=== PATIENT | female | born 1950 | race Caucasian/White ===

== ENCOUNTER 2024-02-28 06:29 | Day surgery (SDC) | payer MEDICARE, SELFPAY ==
[2024-02-28] VITALS (9 sets, daily range): BP systolic 115–154; BP diastolic 74–90; BMI 25.7
[2024-02-28] MEDS: TYLENOL 1000 MG PO (08:22)
[2024-02-28] MEDS: NORMOSOL-R 1000 IV (08:29)
--- NOTE | 2024-02-28 08:45 | W.SUR.PREOP ---
Pre-Operative Surgical Note
-
I have examined this patient prior to the performance of the scheduled procedure.
The patient's condition is unchanged from the time of the current History and
Physical and the patient is able to undergo the scheduled procedure.
[2024-02-28] MEDS: DILAUDID 0.5 MG IV (11:22)
[2024-02-28] MEDS: DILAUDID 0.25 MG IV (11:48)
[2024-02-28] MEDS: MOTRIN 600 MG PO (12:58)
--- NOTE | 2024-02-28 13:08 | PTCARENOTE ---
Reviewed care of JOSHUA drain, given measuring cup to measure drainage and information sheet with instruction and place to document drainage. Pt told to call with any questions or concerns. Pt has had a JOSHUA drain in the past.
--- NOTE | 2024-02-28 16:39 | W.IMMPOSTOP ---
Surgical Immed Post Op Note
-
Primary Surgeon: MARISOL Hernandez MD
Assisting Surgeon:
Pre-op Diagnosis: Right knee Seroma
Post-op Diagnosis: Same
Procedure Performed: Incision and drainage of right knee, capsulectomy/debridement to fascia, complex closure
Anesthesia Type: GA
Specimen / Cultures: Tissue for culture, permanent
Estimated Blood Loss: 10cc
Complications: None
Operative Findings: Large chronic seroma cavity
--- NOTE | 2024-02-28 16:40 | OR.RPT ---
Operative Report
Operative Report
Date of surgery: 02/28/2024
Surgeon: MARISOL Hernandez MD
Preoperative diagnosis: Right recurrent seroma knee
Postoperative diagnosis: Same
Procedure:
1. Incision and drainage of right knee seroma
2. Capsulectomy and debridement of right knee to fascia, 20 x 15 cm
3. Complex closure of right knee wound 15 cm
Anesthesia: General
EBL: 10 cc
Complications: None
Specimens: Right knee capsule for permanent, tissue for culture
Indications for procedure: Patient is a 74-year-old female who underwent a right total knee arthroplasty. This was complicated by a seroma postoperatively. An attempt to manage this was performed with incision and drainage and drain placement. An
attempt at sclerosis was also performed. 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 This is large in nature without overlying skin concern. We discussed the findings at length and options and alternatives. Decision was made
to proceed with an open incision and drainage with removal of the chronic seroma capsule and debridement of all tissues. She was instructed that a drain would need to be placed and that compression and immobilization will be required in the
postoperative period. Risk the procedure were reviewed including recurrent seroma, wound healing difficulties, infection, bleeding. She understood these risk desired to proceed
Procedure in detail: Patient was identified the preoperative area and the surgical site was confirmed to be the right knee. The prior midline vertical incision was marked out for scar revision. Consents were confirmed all questions were answered.
Patient was taken back to the operative room placed upon the table. Anesthesia was induced and an LMA was placed. Patient was then prepped and draped in the usual sterile fashion. Timeout for patient safety was performed was confirmed that
preoperative antibiotics were administered and left SCD was in place. Procedure began with the excision of the prior elliptical scar revision. This was performed after the injection 1% lidocaine with epinephrine for local anesthesia. The incision
and drainage of the right knee seroma was performed and simple fluid return was noted. Debris within the seroma cavity was sent for culture. Debridement was then performed over this area with capsulectomy. There was significant undermining of the
superior inferior and bilateral skin flaps. The total area was approximately 20 x 15 cm. The capsule was removed from the underlying skin surface being sure to not damage the dermal plexus. The capsule overlying the underlying fascia was also
removed. This was sent for permanent pathology. Hemostasis was ensured and a small bore JOSHUA drain was placed and tunneled superiorly through the skin. 2-0 Prolene was used to suture this in place. A complex closure of the right knee wound was
then performed over an area of 15 cm. This was done with a series of 2-0 Vicryl sutures followed by 2-0 nylon's in a vertical mattress and running fashion. She tolerated procedure well was performed out complication all counts were correct at the
end the case. She was extubated taken the PACU for further care
== END 2024-02-28 13:07 | disposition home or self-care (01) ==
LOC: SDS 06:29
PROVIDERS: ATTENDING PHYSICIAN Surgery Plastic and Reconstructive Surgery
DX: M96.842 Postprocedural seroma of a musculoskeletal structure following a musculoskeletal system procedure (principal); Z96.651 Presence of right artificial knee joint
CPT/HCPCS: 10140; 13121; 13122 ×2; 88304; 87070; 87075; 87176; 87205; 93005

== ENCOUNTER 2024-03-21 20:56 | Inpatient (IN) | payer MEDICARE, OTHER, SELFPAY ==
[2024-03-21 17:33] VITALS: BP 146/97
--- NOTE | 2024-03-21 18:19 | ED.GENMED ---
History of Present Illness
General
Chief Complaint: Skin Problem
Time Seen by Provider: 03/21/24 17:45
History of Present Illness
History of Present Illness:
74-year-old female presents the emergency department upon referral from her plastic surgeon. She underwent a right total knee arthroplasty last year that was complicated by development of a seroma. Approximately 3 weeks ago she saw plastic surgery
and underwent operative washout however after evaluation today it was felt that the motion site was infected and she was referred to emergency department for admission and IV antibiotics and potential orthopedic evaluation. She denies fevers or
chills
Review of Systems
Review of Systems
Allergies reviewed?: Yes
All Other Systems: ROS reviewed and negative except as documented in HPI and ROS
Phy Exam
Physical Exam
Physical Exam:
GEN: Well appearing, NAD, WDWN
HEENT: Oral mucosa moist, no scleral icterus
Cardiac: Regular rate
Lung: No respiratory distress, no tachypnea
MSK: Diffuse redness swelling, midline incision with diffuse erythema, JOSHUA drain present with purulent discharge
Skin: Good color, no pallor or jaundice, no rashes
Neuro: AO x3, moves all extremities freely
Psych: Calm, cooperative
Course
Orders/Labs/Results
Orders:
Orders
03/21/24 Dinner
Regular
At Your Request: Full Participation
03/21/24 18:09
Piperacillin/Tazo 3.375 Gram [Zosyn] 3.375 gram in 50 ml IV NOW
03/21/24 19:09
CRP [C-Reactive Protein] Urgent
Complete Blood Count/With Diff Urgent
Comprehensive Metabolic Panel Urgent
Magnesium Urgent
Comment: ADD ON
03/21/24 19:17
Acetaminophen [Tylenol] 1,000 mg .ROUTE .STK-MED ONE
03/21/24 19:20
Acetaminophen [Tylenol] 1,000 mg PO NOW STA
03/21/24 19:31
Vancomycin [Vancocin] 1,500 mg 0.9% Sodium Chloride [Nss] 20 ml 0.9% Sodium Chloride 250 ml [Nss] 250 ml IV NOW
03/21/24 20:00
VANCOMYCIN Pharmacy to Dose [VANCOCIN Pharmacy to Dose] 1 each Pharmacy To Prepare [Call Pharmacy To Prepare] 0 ml IV PER PROTOCOL
03/21/24 20:09
Potassium Chloride [KCl] 40 meq PO NOW STA
03/21/24 20:10
Add On- LAB Routine
Tests Added?: magnesium
03/21/24 20:36
Cell Count (Body Fluid) [Body Fluid Cell Count] Urgent
What is the Body Fluid: seroma
Date Specimen was Collected: 03/21/24
Time Specimen was Collected: 20:30
Comment: Right knee
Fluid Culture with Gram Stain Urgent
MARVEL Source: Knee
Specimen Description: Right
Date Specimen was Collected: 03/21/24
Time Specimen was Collected: 20:30
03/21/24 20:39
Admit/Transfer Patient As Directed
Co-Sign Provider:
Level of Care: Inpatient admission
Assign to:: Medical/Surgical
Physician / Group: skylar swartz
Diagnosis: r knee seroma infection w r knee cellulitis, thania/volume depletion
Reason for Hospitalization: r knee seroma infection w r knee cellulitis, thania/volume depletion
Expected length of stay greater than two midnights?: Yes
ELOS- Estimated Length of Stay in days: 4
I certify the patient meets the requirements for IP care: Yes
Consult Physician [PHYSICIAN CONSULT] Routine
Consulting Provider: Anson Hernandez
Was physician already notified: Yes
Reason for consult: Recurrent seroma right knee
03/21/24 20:42
Code Status As Directed
Resuscitation Status: Full Code
03/21/24 20:47
0.9% Sodium Chloride 500 ml [Nss] 500 ml IV BOLUS
03/21/24 21:08
Ondansetron Injectable [Zofran] 4 mg IV Q6HPRN PRN
03/21/24 21:50
0.9% Sodium Chloride 1000 ml [Nss] 1,000 ml IV 100 mls/hr
Acetaminophen [Tylenol] 650 mg PO Q4HPRN PRN
Cholecalciferol (Vitamin D3) [VITAMIN D3 (cholecalciferol)] 25 mcg PO DAILYPRN PRN
HydrALAZINE [Apresoline] 10 mg IV Q6HPRN PRN
Oxycodone [Roxicodone] 5 mg PO Q4HPRN PRN
Tramadol HCl [Ultram] 50 mg PO Q6HPRN PRN
03/21/24 21:50
Activity As Directed
Activity Level: With Assistance
Intake/ Output As Directed
Frequency: Per unit guidelines
Old Records Request [Obtain Records] As Directed
Dates of Information to be Released: november- january 2024
Type of Information Requested: Consults
H&P
Other
If Other, list type of info requested: LABS from dr José Luis [phone],
Obtain Records from: [facility] [phone]
Pneumatic Compression Sleeves As Directed
Type: Knee high
Comment: left leg only
Vital Signs As Directed
Frequency: Per unit guidelines
Weight As Directed
Frequency: Daily
Ot Eval And Treat Routine
Pt Eval And Treat Routine
Activity Level: With Assistance
DX Deep Vein Thrombosis Video Routine
03/21/24 22:00
Alprazolam [Xanax] 0.5 mg PO HS
VANCOMYCIN Pharmacy to Dose [VANCOCIN Pharmacy to Dose] 1 each Pharmacy To Prepare [Call Pharmacy To Prepare] 0 ml IV PER PROTOCOL
03/22/24 06:00
Complete Blood Count/With Diff IN AM
Comprehensive Metabolic Panel IN AM
MR Right Le Joint Without IN AM
Comment:
Reason For Exam: recurrent r knee seroma, cellulitis
OK for patient to be off Cardiac Monitoring for MRI: Yes
Recent pill cam endoscopy?: No
Pacemaker/Defibrillator?: No
03/22/24 08:00
Rosuvastatin Calcium [Crestor] 10 mg PO DAILY
Venlafaxine Extended Release [Effexor Xr] 150 mg PO DAILY
03/23/24 06:00
Complete Blood Count/With Diff IN AM
Comprehensive Metabolic Panel IN AM
03/24/24 06:00
Complete Blood Count/With Diff IN AM
Comprehensive Metabolic Panel IN AM
Abnormal Lab Results
03/21/24
19:09
WBC 12.4 H 10^3/uL
(4.8-10.8)
RBC 3.95 L 10^6/uL
(4.20-5.40)
Hgb 10.5 L g/dL
(12.0-16.0)
Hct 30.9 L %
(37.0-47.0)
MCV 78.2 L fL
(81.0-99.0)
MCH 26.6 L pg
(27.0-31.0)
MPV 10.6 H fL
(7.4-10.4)
Abs Immat Gran (auto) 0.1 H 10^3/uL
(0-0.05)
Absolute Neuts (auto) 10.8 H 10^3/uL
(1.4-6.5)
Absolute Lymphs (auto) 0.6 L 10^3/uL
(1.2-3.4)
Absolute Monos (auto) 0.7 H 10^3/uL
(0.1-0.6)
Immature Gran % 0.8 H %
(0-0.5)
Neutrophils % 87.1 H %
(42.2-75.2)
Lymphocytes % 5.0 L %
(20.5-51.1)
Potassium 3.1 L mmol/L
(3.5-5.1)
BUN 54 H mg/dl
(7-17)
Creatinine 1.7 H mg/dL
(0.6-1.0)
Glucose 149 H mg/dl
(70-99)
C-Reactive Protein > 270.00 H mg/L
(0.0-10.00)
Total Protein 6.1 L g/dl
(6.3-8.2)
Albumin 3.4 L g/dl
(3.5-5.0)
03/21/24 19:09
03/21/24 19:09
Vital Signs
Initial and Last Documented VS:
Initial Vital Signs
Temp Pulse Resp BP Pulse Ox
99.4 F 109 16 146/97 98
03/21/24 17:33 03/21/24 17:33 03/21/24 17:33 03/21/24 17:33 03/21/24 17:33
Last Documented Vital Signs
Temp Pulse Resp BP Pulse Ox
98.1 F 90 20 146/91 99
03/21/24 21:57 03/21/24 21:57 03/21/24 21:57 03/21/24 21:57 03/21/24 21:57
MDM/Problems Addressed
MDM/Problems Addressed:
Will admit for empiric IV antibiotics and further management
*Critical Care Note
Total Time (30-74mins, 75-104mins- exclusive of procedures): Not Applicable
ED Attending Note
-
Portions of this chart may have been created with voice recognition software.� Occasional wrong word or��sound alike� substitutions may have occurred due to the inherent limitations of voice recognition software.
Discharge Plan
Departure
Patient Disposition: Admit
Date of Disposition: 03/21/24
Time of Disposition: 19:45
Presentation/result/management discussed w/ accepting MD/DO: Hospitalist
Discharge Problem:
Postoperative infection, seroma
Interventions
Interventions:
*Risk Screen - Suicide Last Done: 03/21/24 18:37
*General Assessment Last Done: 03/21/24 18:37
*Neglect/Abuse Screening Last Done: 03/21/24 18:37
ED- Fall Risk Assessment Last Done: 03/21/24 18:37
*ED COVID-19 Vaccine History Last Done: 03/21/24 22:30
*Nursing Disposition Last Done: 03/21/24 21:26
ED-Skin Assessment Last Done: 03/21/24 18:37
Discharge Date and Time
Discharge Date/Time: 03/21/24 21:42
[2024-03-21 19:10] VITALS: BP 142/89
[2024-03-21 19:13] VITALS: BMI 26.6
[2024-03-21] MEDS: TYLENOL 1000 MG PO (19:20)
[2024-03-21 19:22] LABS: % Basophils 0.3 % (0-2); % Eosinophils 0.8 % (0-6); % Immature Granulocytes 0.8 % (0-0.5); % Neutrophils 87.1 % (42.2-75.2); Absolute Eosinophils 0.1 10^3/uL (0-0.7); Absolute Immature Granulocytes 0.1 10^3/uL (0-0.05); Absolute Lymphocytes 0.6 10^3/uL (1.2-3.4); Absolute Monocytes 0.7 10^3/uL (0.1-0.6); Absolute Neutrophils 10.8 10^3/uL (1.4-6.5); Hematocrit 30.9 % (37.0-47.0); Hemoglobin 10.5 g/dL (12.0-16.0); Mean Corpuscular Hgb 26.6 pg (27.0-31.0); Mean Corpuscular Volume 78.2 fL (81.0-99.0); Mean Platelet Volume 10.6 fL (7.4-10.4); Nucleated Red Blood Cells % 0 %; Platelet Count 298 10^3/uL (130-400); Red Blood Cell Count 3.95 10^6/uL (4.20-5.40); Red Cell Dist. Width 14.4 % (11.5-14.5); White Blood Cell Count 12.4 10^3/uL (4.8-10.8)
[2024-03-21] MEDS: ZOSYN 50 IV (19:22)
[2024-03-21 19:26] VITALS: BP 152/94
[2024-03-21 19:27] VITALS: BP 147/85
[2024-03-21 19:41] LABS: ALT (SGPT) 15 U/L (0-35); AST (SGOT) 20 U/L (14-36); Albumin 3.4 g/dl (3.5-5.0); Alkaline Phosphatase 122 U/L (38-126); Blood Urea Nitrogen 54 mg/dl (7-17); Calcium 9.7 mg/dl (8.4-10.2); Carbon Dioxide 22 mmol/L (22-30); Chloride 102 mmol/L (98-107); Estimated Creatinine Clearance 25 ml/min; Glucose 149 mg/dl (70-99); Potassium 3.1 mmol/L (3.5-5.1); Sodium 136 mmol/L (135-145); Total Bilirubin 0.2 mg/dl (0.2-1.3); Total Protein 6.1 g/dl (6.3-8.2); eGFR 31.66
[2024-03-21] MEDS: VANCOCIN 300 MG IV (19:47)
[2024-03-21] MEDS: VANCOCIN 300 ML IV (19:47)
[2024-03-21 19:52] LABS: C-Reactive Protein > 270.00 mg/L (0.0-10.00)
--- NOTE | 2024-03-21 19:59 | HPS.HSE ---
Family Physician
-
Family Physician: Gemma Crespo
Chief Complaint
-
Right knee erythema, fever, nausea
History of Present Illness
Patient's status post incision and drainage of right knee seroma with capsulectomy and debridement of right knee to fascia and complex closure right knee wound 15 cm on 02/28/[address] Hernandez. He has surgical drain placed on 02/27 that initially
was draining 75 cc now currently draining 25 cc daily yellow cloudy drainage. She also did not notice erythema surrounding her right knee sutures are still intact no drainage from longitudinal incision site, although drain in place since still
draining 25 cc daily. She does report she developed 100.7 temperature with some bodyaches and nausea over the past 2 nights along with some loose stool pudding-like. She thought it was due to possible COVID but did not think about her right knee
possibly being infected. The Patient had aprior right knee total arthroplasty May [address] James at [facility] she has with recurrent seromas with removal in September 2023 and multiple knee Arthocenteses in his office. She also
follows with Dr. José Luis Madrigal cardiology for hypertension was placed on HCTZ in January due to peripheral edema and her amlodipine was stopped. She reports all of her outpatient labs she had done in January and prior November at [facility] in [place].
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
knee replacements.
Medical History
Past Medical History
Past Medical History: Reports Other
Additional Past Medical History:
HTN
HLD
anxiety
insomnia
ex-smoker 31-year 1 pack a day quit 2017
Vapes marijuana daily
SchwannOma
oral cancer with removal 2017
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
severe osteoarthritis bilateral knee replacements
Recurrent seroma right knee since July 2023 right knee replacement was May 2023
Past Surgical History: Reports Other
Additional Past Surgical History:
Right knee replacement 05/2023
Right knee washout September 2023
Right knee seroma washout 02/28/2024
Left knee replacement 02/21/2023
CTR 2009
Laminectomy T8 1999
Ganglion cyst removal 1993
Hysterectomy
Oral cancer removal 04/23/2018
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
Social History
Tobacco: Former Smoker (31-year 1 pack a day quit 2017)
Alcohol: Occasional (Went on vacation only)
Drug: Marijuana (Vapes marijuana daily)
Personal: Single
Living: Alone (With her dog who is currently in a kennel)
Employment: Retired
Family History
Family History: Other (Mother 92.5 years old dementia Father 92.5 years old complications of fall had history of hypertension patient with 1 sister living DM2, OA)
Allergies / Home Medications
Allergies reflects when Allergies were last updated in [employer]
Home Medications with original date entered in [employer]
Allergy/Medication List:
Allergies
Allergy/AdvReac Type Severity Reaction Status Date / Time
latex Allergy Rash/itchin Verified 03/21/24 17:35
g
Home Medications
alprazolam 0.5 mg tablet (Xanax) 0.5 mg PO HS anxiety/sleep 02/23/24
cholecalciferol (vitamin D3) 25 mcg (1,000 unit) tablet 25 mcg PO DAILYPRN PRN supplement 02/23/24
lisinopril 40 mg tablet 40 mg PO DAILY 02/23/24
rosuvastatin 10 mg tablet 10 mg PO DAILY 02/23/24
venlafaxine 150 mg tablet,extended release 24 hr 150 mg PO DAILY 02/23/24
hydrochlorothiazide 25 mg tablet 12.5 mg PO DAILY 03/21/24
Review of Systems
-
History Source: Patient
A 12 point ROS was completed and negative except as noted: Yes
Constitutional: Denies Fever (100.72 days ago) or Chills
EENT: Denies Sore Throat or Runny Nose
Respiratory: Denies Cough or Trouble Breathing
Cardiac: Denies Chest Pain, Diaphoresis, Palpitations or Syncope
Abdomen/GI: Reports Diarrhea (Loose pudding-like stools); Denies Abdominal Pain, Nausea, Vomiting or Constipated
: Denies Dysuria, Frequency, Flank Pain, Incontinence or Difficulty Voiding
Musculoskeletal: Reports Joint Pain (Right knee), Joint Swelling (Right knee) and Other (Right knee with longitudinal incision status post right knee arthroplasty sutures intact surrounding erythema/warmth entire aspect of right knee extending onto
proximal tib-fib suprapatellar drain, draining yellow cloudy in color 25 cc daily)
Skin: Denies Itching or Rash
Neurological: Denies Dizzy or Headache
Endocrine: Reports No Symptoms
Hematologic/Lymphatic: Reports No Symptoms
Psych: Reports Calm
Physical Exam
Vital Signs
Vital Signs
Temp Pulse Resp BP Pulse Ox
99.4 F 93 18 147/85 96
03/21/24 19:10 03/21/24 19:10 03/21/24 19:10 03/21/24 19:27 03/21/24 19:30
Physical Exam
General: Comfortable, Conversant and Fever; No Chills
HEENT: NormoCephalic, Anicteric, Moist mucous membranes, PERRLA, [place]m Conjunctivae, No Ptosis and Other (Dry oral mucosa)
Respiratory: Clear; No Wheezes, Rales or Rhonchi
Cardiac: S1/S2, Regular Rhythm and Peripheral Edema (Trace right lower extremity); No Murmur, Rub or Gallop
GI: Soft, Non Tender, Non Distended, Normal Bowel Sounds and No Hepatosplenomegaly
Rectal: Deferred by Provider
Genito-urinary: Deferred by me
Musculoskeletal: No Clubbing, No Cyanosis and Edema, Right Lower Extremity (Right knee with longitudinal incision status post right knee arthroplasty sutures intact surrounding erythema/warmth entire aspect of right knee extending onto proximal
tib-fib suprapatellar drain, draining yellow cloudy in color 25 cc daily); No Edema, Left Upper Extremity, Edema, Right Upper Extremity or Edema, Left Lower Extremity
Skin: Warm and Dry; No Rash
Neuro: AO x 3, No Motor Deficits and Cranial Nerves Intact; No DTR's Intact & Symmetrical, Slurred Speech, Facial Droop, Tremors or Sedated
Psych: Calm
Laboratory Results
-
03/21/24 19:09
03/21/24 19:09
Laboratory Results
Total Bilirubin 0.2 mg/dl (0.2-1.3) 03/21/24 19:09
AST 20 U/L (14-36) 03/21/24 19:09
ALT 15 U/L (0-35) 03/21/24 19:09
Alkaline Phosphatase 122 U/L (38-126) 03/21/24 19:09
Data Reviewed
-
Lab Data: Labs Reviewed by me
Impression/Plan
-
Impression/plan:
Admit to Medr
#Postop Right knee seroma infection with surrounding Cellulitis
#S/p right knee seroma washout with drain placed 02/28/2024, prior R knee replacement 05/2023 requiring seroma removal September 2023 and multiple Arthrocenteses in office by Ortho Dr. Maria at [facility] [phone]
#Osteoarthritis
WBC 12.4 with left shift, 99.4 F, HR 93, 147/85
-Consult Dr. Hernandez
N.p.o. after midnight for washout later in the day after MRI completion to assess for bony involvement-per Dr. Hernandez
-MRI right knee without contrast
-Fluid culture and cell count sent from right knee JOSHUA drain
-Plastics Dr hernandez will consult Ortho in a.m(patient did see Dr. Reed for prior consult). per ER attending
-Tylenol, Toradol, oxycodone as needed
-IV vancomycin, IV Zosyn given in ER will continue IV vancomycin renal dosed per pharmacy and cefepime 2 g now and 1 g every 24H given HAILY/CKD
#Anemia likely postop
Hgb 10.5, MCV 78.2-no prior labs
- follow cbc
#Hypokalemia euvolemic secondary diuretic
K3.1
-Will give KCl 40 mEq
-Hold HCTZ 12.5 mg daily
-BMP in a.m.
#HAILY likely dehydration possible CKD 4
Creat 1.7/bun 54 no prior labs
-Will obtain labs from Dr. Janet Crespo [facility] and Dr. José Luis Madrigal [facility] cardiology from November and January 2024 patient had done at [address]
-Hold HCTZ
-IV NSS 1 L bolus then 100 cc an hour NSS
-Follow BMP
#HTN-benign
-Hold current lisinopril hold HCTZ due to HAILY
Was on prior amlodipine but stopped due to peripheral edema
-Will have IV as needed hydralazine
-BP is managed by her talent sourcing specialist Dr. José Luis Madrigal [facility] cardiology
#HLD
-Continue Crestor 10 mg daily
#Anxiety
#Insomnia
-Continue Xanax 0.5 mg at bedtime, Effexor 150 mg daily
#Ex-smoker
31-year 1 pack a day quit 2017
#Daily marijuana vaping
-Cessation advised
#Hx schwannoma T8 with removal and laminectomy
Other PMH:
Oral cancer removal 04/23/2018
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
DVT prophylaxis
SCD left leg until postop eval
Full code patient's Sister Ml is her emergency contact
--- NOTE | 2024-03-21 20:01 | W.PN.UPDATE ---
Update Note
Progress Note Update
This is an addendum to H&P written by LEAFLET OR NEWSPAPER DELIVERER Marta Bautista
I saw and examined the patient.
The LEAFLET OR NEWSPAPER DELIVERER's note was reviewed and I agree with the note.
Comment:
Ms. Iva Avalos is a 74 yo woman with hx laminectomy, left leg sarcoma s/p surgery 2017, hysterectomy, b/l knee replacement (right 05/27, left 02/24) with recent incision and drainage of right knee 02/27 for right knee seroma with
capsulectomy/debridement to fascia, complex closure sent to the ER by surgeon, Dr. Hernandez, for concern for prosthesis infection.
Triage VS: T 99.4, P 109, RR 16, BP 146/97, SpO2 98%
LABS: WBC 12.4, Hg 10.5, PLT 298, Na 136, K+ 3.1, Cr 1.7, Glucose 149, liver enzymes WNL, CRP > 270
knee fluid analysis: WBC 47,300 with PMN 75.9%
s/p Vanc/Zosyn in ER
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
Leukocytosis
-s/p Vanc/Zosyn in ER
-continue Vanc/Cefepime (given HAILY)
-MRI knee
-NPO after MN for washout after MRI discussed with Dr. Hernandez. Dr. Hernandez will discuss case with ortho in AM based on MRI results
HAILY
-no known hx CKD
-likey pre-renal, IVF, monitor
-hold SPONSORSHIP COORDINATOR HCTZ, Lisinopril
Hypokalemia
-replete
remainder of plan as per H&P
[2024-03-21] MEDS: KCL 40 MEQ PO (20:27)
[2024-03-21 20:42] LABS: Magnesium 2.2 mg/dl (1.6-2.3)
[2024-03-21 21:11] LABS: Body Fluid Mononuclear 24.1 %; Body Fluid Polymorphonuclear 75.9 %
[2024-03-21 21:17] LABS: Body Fluid WBC 47300 /CUMM
[2024-03-21 21:19] LABS: Body Fluid Second Tech CMC
[2024-03-21] MEDS: NSS 500 IV (21:25)
[2024-03-21] MEDS: ZOFRAN 4 MG IV (21:26)
[2024-03-21 21:57] VITALS: BP 146/91; BMI 26.7
--- NOTE | 2024-03-21 22:14 | PHA.VAN.IN ---
Assessment
- Assessment
Renal Function: Unknown baseline
Concomitant Antimicrobials: CEFEPIME
- Previous Dosing Experience
Previous Regimen: NONE
Plan
- Plan
Initial / Loading Dose: 1500MG
Maintenance Regimen: DOSING BY RANDOM LEVEL
Monitoring: RANDOM VANCOMYCIN LEVEL 03/22/24 AM
Pharmacokinetics Vancomycin I
- -
Patient Age: 74
Patient Sex: Female
Vancomycin Day #: 1
Indication: Bone And Joint (infected prosthesis)
Requesting Provider: YAIR
Height / Weight:
Height 5 ft
Actual Weight 61.915 kg
Pertinent Past Medical History: WASH OUT PROCEDURE 02/28/24
- Vital Signs / Lab Results
Temp Pulse Resp BP Pulse Ox
98.1 F 90 20 146/91 99
03/21/24 21:57 03/21/24 21:57 03/21/24 21:57 03/21/24 21:57 03/21/24 21:57
Lab Results - Hematology
03/21/24
19:09
WBC 12.4 H
Lab Results - Chemistry
03/21/24
19:09
BUN 54 H
Creatinine 1.7 H
Estimated Creat Clear 25
Albumin 3.4 L
[2024-03-21] MEDS: NSS 1000 IV (22:27)
[2024-03-21] MEDS: XANAX 0.5 MG PO (23:03)
[2024-03-21 23:25] VITALS: BP 127/79
[2024-03-21] MEDS: ULTRAM 50 MG PO (23:46)
[2024-03-22] VITALS (12 sets, daily range): BP systolic 122–150; BP diastolic 73–96; BMI 26.7
[2024-03-22 08:01] LABS: % Basophils 0.3 % (0-2); % Eosinophils 1.3 % (0-6); % Immature Granulocytes 0.7 % (0-0.5); % Lymphocytes 8.8 % (20.5-51.1); % Monocytes 9.6 % (1.7-9.3); % Neutrophils 79.3 % (42.2-75.2); Absolute Eosinophils 0.1 10^3/uL (0-0.7); Absolute Immature Granulocytes 0.1 10^3/uL (0-0.05); Absolute Lymphocytes 0.9 10^3/uL (1.2-3.4); Absolute Neutrophils 8.3 10^3/uL (1.4-6.5); Hematocrit 29.4 % (37.0-47.0); Hemoglobin 9.9 g/dL (12.0-16.0); Mean Corp Hgb Conc. 33.7 g/dL (33.0-37.0); Mean Corpuscular Hgb 26.7 pg (27.0-31.0); Mean Corpuscular Volume 79.2 fL (81.0-99.0); Mean Platelet Volume 10.7 fL (7.4-10.4); Nucleated Red Blood Cells % 0 %; Platelet Count 309 10^3/uL (130-400); Red Blood Cell Count 3.71 10^6/uL (4.20-5.40); Red Cell Dist. Width 14.4 % (11.5-14.5); White Blood Cell Count 10.4 10^3/uL (4.8-10.8)
[2024-03-22 08:13] LABS: ALT (SGPT) 14 U/L (0-35); AST (SGOT) 18 U/L (14-36); Albumin 3.2 g/dl (3.5-5.0); Alkaline Phosphatase 125 U/L (38-126); Blood Urea Nitrogen 39 mg/dl (7-17); Calcium 9.3 mg/dl (8.4-10.2); Carbon Dioxide 22 mmol/L (22-30); Chloride 106 mmol/L (98-107); Estimated Creatinine Clearance 42 ml/min; Glucose 95 mg/dl (70-99); Potassium 3.4 mmol/L (3.5-5.1); Sodium 136 mmol/L (135-145); Total Bilirubin 0.3 mg/dl (0.2-1.3); Total Protein 5.7 g/dl (6.3-8.2); eGFR 59.86
--- NOTE | 2024-03-22 08:54 | PHA.VAN.FU ---
Vancomycin Assessment / Plan
- Assessment
Renal Function: SCR Decreasing (1.7-> 1.0)
WBC's are: Trending Down (12.4->10.4)
In the past 24 hrs, patient has been: Afebrile
Concomitant Antimicrobials: cefepime
- Assessment - Therapeutic Drug Monitoring
Random Level: 12.0 - ~ 11 hours post 1500 mg loading dose
- Dosing Plan
Continue: dose by level for now till SCR is stable
Dosing by Level: Re-dose today (1000 mg x 1 dose)
At current SCR - CrCl = 42ml/ml, a dose of 1000 mg q24h estimates a AUC 598; Trough 15; T1/2 17.7 h
- Monitoring Plan
Random Level: ordered for am 03/23/24
- Follow Up
Pharmacy will continue to follow.
Vancomycin Follow UP
- -
Patient Age: 74
Patient Sex: Female
Vancomycin Day #: 2
Indication: Bone And Joint (infected prosthesis)
Requesting Provider: YAIR
Height / Weight:
Height 5 ft
Actual Weight 61.915 kg
Pertinent Past Medical History: WASH OUT PROCEDURE 02/28/24( R Knee replacement 05/27)
- Vital Signs / Lab Results
Temp Pulse Resp BP Pulse Ox
99.4 F 99 22 141/86 98
03/22/24 07:30 03/22/24 07:30 03/22/24 07:30 03/22/24 07:30 03/22/24 07:30
Lab Results - Hematology
03/21/24 03/22/24
19:09 07:14
WBC 12.4 H 10.4
Lab Results - Chemistry
03/21/24 03/22/24
19:09 07:14
BUN 54 H 39 H
Creatinine 1.7 H 1.0
Estimated Creat Clear 25 42
Albumin 3.4 L 3.2 L
Therapeutic Drug Monitoring
Random Vancomycin 12.0 ug/ml 03/22/24 07:14
[2024-03-22] MEDS: NSS 1000 IV ×2 (09:16→21:46)
[2024-03-22] MEDS: EFFEXOR XR 150 MG PO (09:18)
[2024-03-22] MEDS: CRESTOR 10 MG PO (09:18)
[2024-03-22] MEDS: STERILE WATER FOR INJECTION 10 ML IV (09:19)
[2024-03-22] MEDS: MAXIPIME 2000 MG IV (09:20)
[2024-03-22] MEDS: ROXICODONE 5 MG PO (09:21)
--- NOTE | 2024-03-22 09:43 | W.PN.HOSP.TC ---
Today's Communication/Plan
-
see outlined plan
Assessment / Plan
Assessment / Plan
Assessment:
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
- prior R knee seroma washout with drain 02/27, prior R TKR 05/27 and subsequent seroma removal 09/2023 (also multiple Arthrocenteses by ortho Dr. Maria at [facility])
- sent in by Dr. Hernandez Plastic surgery in consultation with Orthopedics (Dr. Reed)
- s/p R knee arthrocentesis
- MRI pending
- NPO for probably surgical intervention; will need operative cultures sent
- pain control - multi-modal
- on Vancomycin - requires intensive monitoring
- on Cefepime
- consult ID
Anemia
- follow CBC
Hypokalemia euvolemic secondary diuretic
- replete via IV
- hold HCTZ
- follow BMP
HAILY likely dehydration possible CKD 4
- resolved with IVF
- hold HCTZ
- follow BMP
Essential HTN
- hold HCTZ/BISHOP
- previously was on Amlodipine, but stopped d/t peripheral edema
- prn IV hydralazine
HLD
- continue Crestor 10 mg daily
Anxiety
Insomnia
- continue Xanax 0.5 mg at bedtime, Effexor 150 mg daily
Ex-smoker
- 31-year 1 pack a day quit 2017
Daily marijuana vaping
- cessation advised
Hx schwannoma T8 with removal and laminectomy
Oral cancer removal 04/23/2018
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
DVT prophylaxis: SCDs
Code: Full
Anticipated Discharge: > 48 hours
Subjective/Interval History
-
Date of Service: March 22, 2024
agitated this morning over IV line, pole beeping, and pain control
also upset over ongoing wait for MRI
Objective Data
-
Labs:
Laboratory Results
03/22/24
07:14
WBC 10.4
Hgb 9.9 L
Hct 29.4 L
Plt Count 309
Sodium 136
Potassium 3.4 L
Chloride 106
Carbon Dioxide 22
BUN 39 H
Creatinine 1.0
Glucose 95
Calcium 9.3
Total Bilirubin 0.3
AST 18
ALT 14
Alkaline Phosphatase 125
Vital Signs:
Vital Signs
Temp Pulse Resp BP Pulse Ox
99.4 F 99 22 141/86 98
03/22/24 07:30 03/22/24 07:30 03/22/24 07:30 03/22/24 07:30 03/22/24 07:30
I&O
03/21/24 03/22/24 03/23/24
06:59 06:59 06:59
Intake Total 480 / 480
Output Total 100 / 100
Balance 380 / 380
Physical Exam
-
General: Pain
HEENT: Normocephalic and Atraumatic
Respiratory: Negative Wheezes
Cardiac: Regular Rhythm and S1/S2
Genito-urinary: No Costovertebral Tender
Musculoskeletal: Other (R knee in dressing/wraps)
Neuro: AO x 3
Psych: Calm
Data Reviewed
-
Total Time Spent with Patient (in minutes): 51
Labs: Labs Reviewed by me
[2024-03-22] MEDS: NSS (PRESERVATIVE FREE) 0.5 ML IV (10:25)
[2024-03-22] MEDS: ATIVAN 1 MG IV (10:25)
[2024-03-22] MEDS: KCL 270 MEQ IV (10:25)
--- NOTE | 2024-03-22 10:52 | PTOTSP ---
Reviewed chart and attempted to see pt for PT evaluation but she is leaving the nursing unit now for testing. Pt NPO for probable OR this afternoon. Will need updated PT/OT orders post-op.
[2024-03-22] MEDS: VANCOCIN 200 IV (11:54)
--- NOTE | 2024-03-22 13:39 | CON.PS ---
Consultation - Plastic Surgery
Consultation Request
Date/Time Consultation Requested: 03/22/24
Date/Time Consultation Performed: 03/22/24
Performing Provider: MARISOL Hernandez MD
Reason for Consultation: Right knee infection
Medical History
-
Chief Complaint: Right knee infection
History of Present Illness:
74yoF known to me for history of right TKA performed at outside hospital complicated by recurrent seroma requiring multiple interventions. Most recently, the patient was referred to me for consideration of management of the recurrent superficial
seroma and associated skin excess.
After discussing her options, she elected to attempt surgical incision and drainage and removal of the chronic seroma capsule. This was performed without incident and a drain was placed. Cultures taken at that time were negative. She followed a
routine postoperative course and was healing well. She presented to the office on for drain removal. At that time, she noted low grade temps and increased right knee pain. She was found to have a superficial cellulitis and murky possibly
purulent drain output. She was referred to the ED for IV abx and MRI.
Drain output was cultured in the ED. No arthrocentesis was performed. She was started on empiric broad spectrum antibiotics. She was made NPO for eventual washout in OR.
The MRI showed a superficial collection consistent with cellulitis and abscess versus sterile collection in continuity with the drain. Also present was an underlying joint effusion.
Past Medical History
Past Medical History: Cancer, HTN and Psychiatric
Past Surgical History: Orthopedic
Social History
Tobacco: Former Smoker
Drug: Marijuana
Family History
Family History: Reviewed & Not Pertinent
Allergies / Home Medications
Allergy/AdvReac Type Severity Reaction Status Date / Time
latex Allergy Rash/itchin Verified 03/21/24 17:35
g
�Medication �Instructions �Recorded �Confirmed �Type
alprazolam 0.5 mg tablet (Xanax) 0.5 mg PO HS anxiety/sleep 02/23/24 03/21/24 History
cholecalciferol (vitamin D3) 25 25 mcg PO DAILYPRN PRN supplement 02/23/24 03/21/24 History
mcg (1,000 unit) tablet
lisinopril 40 mg tablet 40 mg PO DAILY Blood Pressure 02/23/24 03/21/24 History
rosuvastatin 10 mg tablet 10 mg PO DAILY High Cholesterol 02/23/24 03/21/24 History
venlafaxine 150 mg tablet,extended 150 mg PO DAILY Mental 02/23/24 03/21/24 History
release 24 hr Health/Anxiety
hydrochlorothiazide 25 mg tablet 12.5 mg PO DAILY Blood Pressure 03/21/24 03/21/24 History
Review of Systems
-
History Source: Patient
All other systems: Negative unless noted
Musculoskeletal: Joint Swelling
Skin: Other
Physical Exam
Vital Signs
Temp 99.4 F 03/22/24 07:30
Temp route: Oral 03/22/24 07:30
Pulse 99 03/22/24 07:30
Resp Rate 22 03/22/24 07:30
Blood pressure 141/86 03/22/24 07:30
Blood pressure extremity used: Left upper arm 03/22/24 07:30
Position: Lying 03/22/24 07:30
MAP (cuff-Ciera Monitor) 103 03/21/24 19:27
SaO2 98 03/22/24 07:30
Oxygen Mode of Delivery Room air 03/22/24 07:30
Can the patient verbally communicate their pain? Yes 03/22/24 10:21
Pain scale ratin 03/22/24 10:21
Actual Weight 136 lb 8 oz 03/22/24 05:35
Body Mass Index (BMI) 26.7 03/22/24 05:35
Physical Exam:
NAD
No increased Work of breathing
Right knee with erythema
Incision well healed with sutures in place
Generalized swelling and edema of the right knee
Drain with murky output
Lab Results
03/22/24 07:14
03/22/24 07:14
Physical Exam
General: No Apparent Distress
HEENT: Normocephalic
Skin: Other
Psych: Agitated
Assessment / Plan
-
Right knee cellulitis and extraarticular fluid collection concerning for abscess. Underlying right knee arthroplasty and joint effusion.
We discussed the findings at length and the need to address the infection. The extraarticular fluid collection was amenable to washout and replacement of drain. Cultures would be performed at that time and antibiotics would be tailored to the
specific microbes. The underlying effusion may be reactive in nature or may be indicative of an underlying joint prosthetic infection.
After discussing the case with orthopedic surgery, it was agreed that the superficial and soft tissue would need to be addressed first. Obtaining a sterile arthrocentesis would be difficult at this time and would risk seeding the joint space. CRP
and ESR could be trended while the soft tissue infection resolved and interval healing was allowed. It is very possible an underlying joint space infection is present as is the possibility of a reactive effusion. If the joint is infected, an explant
would be required. This may or may not be done in the immediate time period due to compromised overlying soft tissue and presence of infection. Consideration could be given to debridement of joint space and replacement of poly. Will confer further
with orthopedic surgery.
Discussed risks benefits and alternatives with the patient. She is very worried about the IV and potential PICC line. I discussed that it is in her best interest to attempt all nonsurgical methods to prevent a joint infection if one is not already
present.
Infectious disease consulted and case was reviewed. Awaiting culture results.
She consented for washout and replacement of drain with cultures. Risks include poor wound healing, recurrent infection, bleeding, hematoma seroma, and underlying joint infection. She understood and desired to proceed.
Following washout of superficial infection, recommend orthopedics consult and followup for management of effusion and potential joint infection
Data Reviewed
-
MRI: Image Personally Visualized and interpreted and Report Reviewed by me
Labs: Labs Reviewed by me
--- NOTE | 2024-03-22 13:59 | CM ---
Addendum entered by Latasha Ghosh RN 03/22/24 14:07:
CM received consult for healthcare directive form. Provided to the patient.
Original Note:
Reviewed the chart notes and spoke with the patient at the bedside. The patient resides alone with her dog in a two story home with a total of six steps to enter. The patient reports no DME or SNF in the past. The patient has had [facility] in the
past. The patient confirmed her pharmacy of choice is the [facility]. CM continues to be available to patient/family and is monitoring medical plan for needs at discharge.
Plan: Discharge plans will depend on the patient's progress.
--- NOTE | 2024-03-22 14:02 | CON.ID ---
Addendum entered and electronically signed by Shamika Crook MD 03/22/24 17:01:
heard back from Almonte - cell count and culture was sent from the drain.
Original Note:
Consultation
-
Date/Time Consultation Requested: 03/22/24 9:52
Date/Time Consultation Performed: 03/22/24 14:02
Requesting Provider: Dr Renae
Performing Provider: Dr Crook
Reason for Consultation: Right knee erythema, fever, nausea
Chief Complaint / Past History
Chief Complaint
drainage from right knee
History of Present Illness
Ms Avalos is a 74 alfredito old female with history of prosthetic R knee 05/[address] James at [facility] with multiple athrocetneses and ultimatley seroma removal 09/27. Then 02/27 she was admitted for elective washout and
removal of seroma and excess skin with plastic surgery here Dr Hernandez. She was discharged with a drain initially draining 75 cc/day then progressed to cloudy drainage, currently at 25 ccs per day. She has been noticing fevers, myalgias and nausea
for the last two night, there is new erythema of the right knee as well.
Since arrival here she has been afebrile, bp stable, wbc intially 12 now 10.4, hgb 9.9, plt 309, eos 1.3%, cr initially 1.7 now 1.0, t bili 0.3, ast 18, alt 14, alk phos 125, crp >270, MRI right LE: 1. Severe soft tissue swelling and subcutaneous
edema in the anterior right knee consistent with SEVERE CELLULITIS. Surgical drain in the anterior soft tissues of the right knee. 2. LARGE 5.7 cm EXTRA-ARTICULAR FLUID COLLECTION overlying the anteromedial medial tibial plateau. Diagnostic
possibilities are (1) a soft tissue abscess or (2) an aseptic fluid collection. 3. LARGE RIGHT KNEE JOINT EFFUSION suspicious for prosthesis [place] [address] wbc, 75% PMNS, gram stain with gpcs, cultre in pgoress. 02/27 right
knee aerobic and anaerobic cultures finalized negative. patient currently on vancomycin and cefepime.
Past History
Additional Past Medical History:
HTN
HLD
anxiety
insomnia
ex-smoker 31-year 1 pack a day quit 2017
Vapes marijuana daily
SchwannOma
oral cancer with removal 2017
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
severe osteoarthritis
Additional Past Surgical History:
Right knee replacement 05/2023
Right knee washout September 2023
Right knee seroma washout 02/28/2024
Left knee replacement 02/21/2023
CTR 2009
Laminectomy T8 1999
Ganglion cyst removal 1993
Hysterectomy
Oral cancer removal 04/23/2018
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
Allergy History:
latex Allergy (Verified 03/21/24 17:35)
Rash/itching
Medications Reviewed: Yes
Social History
Tobacco: Former Smoker
Alcohol: Occasional
Drug: Marijuana (vapes daily)
Family History
Family History: Not Pertinent
Review of Systems
Review of Systems
General: Fever; Negative Chills
All systems: All other systems were reviewed and were negative
Vital Signs
Temp Pulse Resp BP Pulse Ox
99.4 F 99 22 141/86 98
03/22/24 07:30 03/22/24 07:30 03/22/24 07:30 03/22/24 07:30 03/22/24 07:30
Physical Exam
Physical Exam
Constitutional: No Acute Distress and Chronically Ill
Cardiovascular: Regular Rate and S1/S2; Negative Murmur or Rub
Pulmonary: Clear and Symmetric; Negative Wheezes, Rales or Rhonchi
Gastrointestinal: Soft, Non Tender, Non Distended and Normal Bowel Sounds
Extremities: Other (right knee swollen, red, tender, drain in place with cloudy fluid, no dehiscence)
Skin: Warm and Dry; Negative Rash or Jaundice
Lab / Diagnostic Study Results
03/22/24 07:14
03/22/24 07:14
Abs Immat Gran (auto) 0.1 10^3/uL (0-0.05) H 03/22/24 07:14
Absolute Neuts (auto) 8.3 10^3/uL (1.4-6.5) H 03/22/24 07:14
Absolute Lymphs (auto) 0.9 10^3/uL (1.2-3.4) L 03/22/24 07:14
Absolute Monos (auto) 1.0 10^3/uL (0.1-0.6) H 03/22/24 07:14
Absolute Basos (auto) 0.0 10^3/uL (0-0.2) 03/22/24 07:14
Immature Gran % 0.7 % (0-0.5) H 03/22/24 07:14
Neutrophils % 79.3 % (42.2-75.2) H 03/22/24 07:14
Lymphocytes % 8.8 % (20.5-51.1) L 03/22/24 07:14
Monocytes % 9.6 % (1.7-9.3) H 03/22/24 07:14
Eosinophils % 1.3 % (0-6) 03/22/24 07:14
Basophils % 0.3 % (0-2) 03/22/24 07:14
C-Reactive Protein > 270.00 mg/L (0.0-10.00) H 03/21/24 19:09
Microbiology Results
Micro:
03/21/24 20:36 Body Fluid Culture - Pending
Knee - Right Gram Stain - Preliminary
03/21/24 23:43 MRSA Screen - Pending
Nose
Assessment / Plan
Probable PJI due to GPC
- request records from [facility]
- R knee fluid with moderate WBC and rare GPCs - unclear to me if this was taken from her drain or if an arthrocentesis was preformed - tiger text sent to ordering constantino Almonte to clarify
- follow culture for ID and sensitivity
- continue vancomycin, stopped cefepime
- if febrile over 100.5 orally then would send blood cultures x2, otherwise very low yield of blood cultures at this time
- may benefit from washout or eventual 1 or 2 stage revision; further thoughts pending ID of the isolate
- plastics is following patient
- follow clinically
--- NOTE | 2024-03-22 17:43 | W.IMMPOSTOP ---
Surgical Immed Post Op Note
-
Primary Surgeon: MARISOL Hernandez MD
Assisting Surgeon:
Pre-op Diagnosis: Right knee superficial collection
Post-op Diagnosis: Same, underlying joint effusion
Procedure Performed: Right knee superficial soft tissue I+D, drain replacement
Anesthesia Type: General
Specimen / Cultures: right knee extraarticular Fluid for aerobes, anaerobes
Estimated Blood Loss: 15cc
Complications: None
Operative Findings: Murky superficial fluid, cultured. Thorough irrigation and drain replacement. Underlying joint space intact with effusion.
--- NOTE | 2024-03-22 17:44 | OR.RPT ---
Operative Report
Operative Report
Date of surgery: 03/22/2024
Surgeon: MARISOL Hernandez MD
Preoperative diagnosis: Right knee subcutaneous tissue infection
Postoperative diagnosis: Same
Procedure: Incision and drainage of right knee soft tissue
Complications: None
Cultures: Right knee fluid cultures
Drain: 15 Greenlandic Sebastian
EBL: Minimal
Indications for procedure: Patient is a 74-year-old female known to me for having a complicated right lower knee arthroplasty. This required multiple procedures and trips back to the OR for recurrent fluid collection. Most recently she was
referred to me after second opinion by Dr. Segundo Reed from orthopedic surgery. Her index surgeon Dr. Maria from [facility] was made aware of the referral and and agreed with the follow-up care according to the patient. She underwent
incision and drainage of her right knee fluid collection approximately 2 to 3 weeks prior to presenting to the office with erythema and purulent drainage from the right knee. Upon evaluation in the office, she was referred to the emergency
department for admission for IV antibiotics and surgical care. Orthopedic surgery was made aware the case was discussed accordingly. Prior to initiation of antibiotics, cultures were taken from the drain fluid. MRI confirmed superficial fluid
collection and underlying joint effusion. Due to the overlying infection, joint aspiration would be delayed to prevent seeding the joint in the event that is a sterile effusion. We discussed risks of procedure including wound healing complications,
underlying prosthetic infection, bleeding, recurrent seroma. She understood these risk desired to proceed.
Procedure detail: Patient was identified preoperatively and the surgical site was confirmed to be the right knee. All questions were answered and consents were confirmed. Patient was taken back the operating room placed supine the table.
Anesthesia was induced LMA was placed. Prior suture material was removed as was the drain before prepping and draping the right knee in the usual sterile fashion using Betadine solution. Timeout for patient age was performed was confirmed the left
SCD was in place and antibiotics had been administered previously. Procedure began with the incision of the prior healing wound. Purulent drainage was encountered. This was sent for aerobic and anaerobic culture. This was thoroughly debrided
using Versajet and 3 L of normal saline. The wound was then subsequently closed with a series of 2-0 nylon's in a vertical mattress and interrupted fashion. A drain was replaced 15 Sebastian in the subcutaneous space where the prior seroma existed.
No evidence of continuity of the superficial collection with underlying joint space was identified.
Patient tolerated suture well was performed without complication. All counts were correct at the end the case. She was referred for inpatient care and evaluation by infectious disease for long-term antibiotic care. Orthopedic surgery was
updated and consideration will be given for evaluation for underlying prosthetic joint infection as indicated.
[2024-03-22] MEDS: XANAX 0.5 MG PO (21:47)
[2024-03-23] MEDS: ROXICODONE 5 MG PO ×4 (00:37→21:33)
[2024-03-23 03:28] VITALS: BP 147/92
[2024-03-23] MEDS: ULTRAM 50 MG PO (03:49)
[2024-03-23 05:15] VITALS: BMI 27.6
[2024-03-23 06:36] LABS: % Basophils 0.2 % (0-2); % Immature Granulocytes 1.2 % (0-0.5); % Lymphocytes 5.8 % (20.5-51.1); % Neutrophils 86.8 % (42.2-75.2); Absolute Immature Granulocytes 0.1 10^3/uL (0-0.05); Absolute Lymphocytes 0.6 10^3/uL (1.2-3.4); Absolute Monocytes 0.7 10^3/uL (0.1-0.6); Absolute Neutrophils 9.5 10^3/uL (1.4-6.5); Hematocrit 30.2 % (37.0-47.0); Hemoglobin 10.1 g/dL (12.0-16.0); Mean Corp Hgb Conc. 33.4 g/dL (33.0-37.0); Mean Corpuscular Hgb 26.6 pg (27.0-31.0); Mean Corpuscular Volume 79.5 fL (81.0-99.0); Mean Platelet Volume 10.1 fL (7.4-10.4); Nucleated Red Blood Cells % 0 %; Platelet Count 325 10^3/uL (130-400); Red Cell Dist. Width 14.6 % (11.5-14.5); White Blood Cell Count 10.9 10^3/uL (4.8-10.8)
[2024-03-23 06:50] LABS: Vancomycin Random 7.9 ug/ml
[2024-03-23 07:09] LABS: ALT (SGPT) 13 U/L (0-35); AST (SGOT) 17 U/L (14-36); Albumin 2.9 g/dl (3.5-5.0); Alkaline Phosphatase 127 U/L (38-126); Blood Urea Nitrogen 23 mg/dl (7-17); Calcium 9.1 mg/dl (8.4-10.2); Carbon Dioxide 24 mmol/L (22-30); Chloride 109 mmol/L (98-107); Estimated Creatinine Clearance 61 ml/min; Glucose 133 mg/dl (70-99); Potassium 4.3 mmol/L (3.5-5.1); Sodium 139 mmol/L (135-145); Total Bilirubin 0.2 mg/dl (0.2-1.3); Total Protein 5.5 g/dl (6.3-8.2); eGFR > 60.00
[2024-03-23 07:30] VITALS: BP 141/89
--- NOTE | 2024-03-23 07:45 | PHA.VAN.FU ---
Vancomycin Assessment / Plan
- Assessment
Renal Function: SCR Decreasing
WBC's are: Stable
In the past 24 hrs, patient has been: Afebrile
Concomitant Antimicrobials: Cefepime
- Assessment - Therapeutic Drug Monitoring
Random Level: R = 7.9 ~ 18hrs post Vanc 1000mg
- Dosing Plan
Adjust Regimen to: Vanc 1250mg IV q24H
New Regimen Predicts: AUC (528), Peak (38), Trough (11)
- Monitoring Plan
No level(s) ordered at this time: Consider levels after 03/25 0600 dose.
- Follow Up
Pharmacy will continue to follow.
Vancomycin Follow UP
- -
Patient Age: 74
Patient Sex: Female
Vancomycin Day #: 3
Indication: Bone And Joint (infected prosthesis)
Requesting Provider: YAIR
Height / Weight:
Height 5 ft
Actual Weight 64.093 kg
Pertinent Past Medical History: WASH OUT PROCEDURE 02/28/24( R Knee replacement 05/27)
- Vital Signs / Lab Results
Temp Pulse Resp BP Pulse Ox
98.4 F 84 18 147/92 99
03/23/24 03:28 03/23/24 03:28 03/23/24 03:28 03/23/24 03:28 03/23/24 03:28
Lab Results - Hematology
03/21/24 03/22/24 03/23/24
19:09 07:14 06:16
WBC 12.4 H 10.4 10.9 H
Lab Results - Chemistry
03/21/24 03/22/24 03/23/24
19:09 07:14 06:16
BUN 54 H 39 H 23 H
Creatinine 1.7 H 1.0 0.7
Estimated Creat Clear 25 42 61
Albumin 3.4 L 3.2 L 2.9 L
Microbiology Results
03/22/24 17:00 Gram Stain - Preliminary
Knee - Right
03/21/24 20:36 Gram Stain - Preliminary
Knee - Right
Therapeutic Drug Monitoring
Random Vancomycin 7.9 ug/ml 03/23/24 06:16
--- NOTE | 2024-03-23 08:04 | PTCARENOTE ---
Pt states the ultram is not helping her right knee pain this am. Will reasses and medicate with oxycodone 5mg this am. Will cont to monitor.
[2024-03-23] MEDS: CRESTOR 10 MG PO (08:17)
[2024-03-23] MEDS: MAXIPIME 1000 MG IV (08:17)
[2024-03-23] MEDS: EFFEXOR XR 150 MG PO (08:17)
[2024-03-23] MEDS: STERILE WATER FOR INJECTION 10 ML IV (08:18)
[2024-03-23] MEDS: VANCOCIN 275 MG IV (08:19)
[2024-03-23] MEDS: FLUSH (NSS) 2 FLUSH IV ×2 (08:21→17:26)
[2024-03-23 11:40] VITALS: BP 147/81
--- NOTE | 2024-03-23 11:48 | W.PN.HOSP.TC ---
Today's Communication/Plan
-
empiric IV Abx pending cultures; follow ID recs
follow plastic surgery's post-op recs, pain control
formal Ortho consult on Monday for underlying knee joint effusion management
Assessment / Plan
Assessment / Plan
Assessment:
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
- prior R knee seroma washout with drain 02/27, prior R TKR 05/27 and subsequent seroma removal 09/2023 (also multiple Arthrocenteses by ortho Dr. Maria at [facility])
- sent in by Dr. Hernandez Plastic surgery in consultation with Orthopedics (Dr. Reed)
- s/p R knee arthrocentesis
- MRI showed : Severe soft tissue swelling and subcutaneous edema in the anterior right knee consistent with SEVERE CELLULITIS. Surgical drain in the anterior soft tissues of the right knee. LARGE 5.7 cm EXTRA-ARTICULAR FLUID COLLECTION overlying
the anteromedial medial tibial plateau. Diagnostic possibilities are (1) a soft tissue abscess or (2) an aseptic fluid collection. LARGE RIGHT KNEE JOINT EFFUSION suspicious for prosthesis infection. Right total knee arthroplasty in place.
- s/p Right knee superficial soft tissue I+D, drain replacement 03/22 by Mary
- continue IV Abx and ID following. May need PICC line
- Ortho consult routinely on Monday for management of underlying knee joint effusion
- pain control - multi-modal
Anemia
- follow CBC
Hypokalemia euvolemic secondary diuretic
- replete via IV
- hold HCTZ
- follow BMP
HAILY likely dehydration possible CKD 4
- resolved with IVF
- hold HCTZ
- follow BMP
Essential HTN
- hold HCTZ/BISHOP
- previously was on Amlodipine, but stopped d/t peripheral edema
- prn IV hydralazine
HLD
- continue Crestor 10 mg daily
Anxiety
Insomnia
- continue Xanax 0.5 mg at bedtime, Effexor 150 mg daily
Ex-smoker
- 31-year 1 pack a day quit 2017
Daily marijuana vaping
- cessation advised
Hx schwannoma T8 with removal and laminectomy
Oral cancer removal 04/23/2018
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
DVT prophylaxis: SCDs
Code: Full
Anticipated Discharge: > 48 hours
Subjective/Interval History
-
Date of Service: March 23, 2024
s/p washout yesterday
pain better controlled today
Objective Data
-
Labs:
Laboratory Results
03/23/24
06:16
WBC 10.9 H
Hgb 10.1 L
Hct 30.2 L
Plt Count 325
Sodium 139
Potassium 4.3 D
Chloride 109 H
Carbon Dioxide 24
BUN 23 H
Creatinine 0.7
Glucose 133 H
Calcium 9.1
Total Bilirubin 0.2
AST 17
ALT 13
Alkaline Phosphatase 127 H
Vital Signs:
Vital Signs
Temp Pulse Resp BP Pulse Ox
98.6 F 92 20 141/89 98
03/23/24 07:30 03/23/24 07:30 03/23/24 07:30 03/23/24 07:30 03/23/24 07:30
I&O
03/22/24 03/23/24 03/24/24
06:59 06:59 06:59
Intake Total 480 / 480 2019
Output Total 100 / 100
Balance 380 / 380 2004
Physical Exam
-
General: No Apparent Distress
HEENT: Normocephalic and Atraumatic
Respiratory: Negative Wheezes
Cardiac: Regular Rhythm and S1/S2
GI: Soft
Musculoskeletal: Other (R knee immobilizer)
Neuro: AO x 3
Hematologic / Lymphatic: No Lymphadenopathy
Psych: Calm
Data Reviewed
-
Total Time Spent with Patient (in minutes): 51
Labs: Labs Reviewed by me
[2024-03-23] MEDS: NSS 1000 IV (13:03)
[2024-03-23 15:45] VITALS: BP 178/108
--- NOTE | 2024-03-23 16:00 | W.PN.PLAS ---
Progress Note
Objective Data
Vital Signs
Temp Pulse Resp BP Pulse Ox
99.4 F 98 18 154/95 97
03/25/24 07:40 03/25/24 07:40 03/25/24 07:40 03/25/24 07:40 03/25/24 07:40
Intake and Output
03/24/24 03/25/24 03/26/24
06:59 06:59 06:59
Intake Total 2390 / 2390 1560 / 1560
Output Total / 40 30 / 30
Balance 2350 / 2350 1530 / 1530
Intake:
Oral fluids 1440 / 1440 1560 / 1560
IV fluids (Total) 700 / 700
IV piggybacks 250 / 250
Output:
Drain Output (Total) 30 / 30
Right Cruz-Ortega 30 /
Other:
Number of approximated MODERATE 3 3
amounts of urine
Lab Results
03/25/24 05:12
03/25/24 05:12
Microbiology Results
03/22/24 17:00 Knee - Right Anaerobic Culture - Preliminary
Culture pending. Anaerobic cultures are examined after 3
days incubation. Additional information to follow.
03/21/24 20:36 Knee - Right Body Fluid Culture - Preliminary
Group G Streptococcus
03/21/24 20:36 Knee - Right Gram Stain - Preliminary
03/22/24 17:00 Knee - Right Wound Culture - Preliminary
Group G Streptococcus
03/22/24 17:00 Knee - Right Gram Stain - Preliminary
Assessment / Plan
Wound stable. Patient continues to improve. Doing well. Patient anxious to go.
Patient is stable. Will discharge to home once patient is able to ambulate, void, tolerate a PO diet and pain is adequately controlled.
Visiting Nurse care ordered / not ordered.
Wound care discussed with patient.
Follow up within days.
Follow up with family physician for any medical issues.
Patient given any appropriate scripts at office pre op visit.
[2024-03-23] MEDS: ROXICODONE 10 MG PO (17:28)
[2024-03-23] MEDS: APRESOLINE 10 MG IV (17:28)
[2024-03-23 19:00] VITALS: BP 132/81
[2024-03-23] MEDS: XANAX 0.5 MG PO (21:28)
[2024-03-23 23:00] VITALS: BP 136/80
[2024-03-24] MEDS: ROXICODONE 5 MG PO (01:40)
[2024-03-24 06:00] VITALS: BMI 28.0
[2024-03-24] MEDS: VANCOCIN 275 MG IV (06:24)
[2024-03-24 06:48] LABS: % Basophils 0.4 % (0-2); % Eosinophils 0.8 % (0-6); % Immature Granulocytes 4.3 % (0-0.5); % Lymphocytes 15.9 % (20.5-51.1); % Monocytes 9.2 % (1.7-9.3); % Neutrophils 69.4 % (42.2-75.2); Absolute Basophils 0.1 10^3/uL (0-0.2); Absolute Eosinophils 0.1 10^3/uL (0-0.7); Absolute Immature Granulocytes 0.6 10^3/uL (0-0.05); Absolute Lymphocytes 2.1 10^3/uL (1.2-3.4); Absolute Monocytes 1.2 10^3/uL (0.1-0.6); Hematocrit 31.9 % (37.0-47.0); Hemoglobin 10.8 g/dL (12.0-16.0); Mean Corp Hgb Conc. 33.9 g/dL (33.0-37.0); Mean Corpuscular Hgb 27.3 pg (27.0-31.0); Mean Corpuscular Volume 80.8 fL (81.0-99.0); Mean Platelet Volume 9.5 fL (7.4-10.4); Nucleated Red Blood Cells % 0 %; Platelet Count 383 10^3/uL (130-400); Red Blood Cell Count 3.95 10^6/uL (4.20-5.40); Red Cell Dist. Width 14.5 % (11.5-14.5); White Blood Cell Count 12.9 10^3/uL (4.8-10.8)
[2024-03-24 07:12] LABS: ALT (SGPT) 17 U/L (0-35); AST (SGOT) 23 U/L (14-36); Albumin 3.4 g/dl (3.5-5.0); Alkaline Phosphatase 139 U/L (38-126); Blood Urea Nitrogen 17 mg/dl (7-17); Calcium 9.6 mg/dl (8.4-10.2); Carbon Dioxide 22 mmol/L (22-30); Chloride 107 mmol/L (98-107); Estimated Creatinine Clearance 71 ml/min; Glucose 100 mg/dl (70-99); Potassium 3.7 mmol/L (3.5-5.1); Sodium 141 mmol/L (135-145); Total Bilirubin 0.3 mg/dl (0.2-1.3); Total Protein 6.1 g/dl (6.3-8.2); eGFR > 60.00
[2024-03-24 07:30] VITALS: BP 150/85
[2024-03-24 08:20] LABS: Erythrocyte Sed Rate 114 mm/hour (0-20)
--- NOTE | 2024-03-24 08:30 | PHA.VAN.FU ---
Vancomycin Assessment / Plan
- Assessment
Renal Function: SCR Decreasing
WBC's are: Trending Up
In the past 24 hrs, patient has been: Afebrile
Concomitant Antimicrobials: Cefepime
- Dosing Plan
Continue: Vanc 1250mg IV q24h
- Monitoring Plan
Peak Level: 03/25 at 0900
Trough Level: 03/26 at 0530
- Follow Up
Pharmacy will continue to follow.
Vancomycin Follow UP
- -
Patient Age: 74
Patient Sex: Female
Vancomycin Day #: 4
Indication: Bone And Joint (infected prosthesis)
Requesting Provider: YAIR
Height / Weight:
Height 5 ft
Actual Weight 65.034 kg
Pertinent Past Medical History: WASH OUT PROCEDURE 02/28/24( R Knee replacement 05/27)
- Vital Signs / Lab Results
Temp Pulse Resp BP Pulse Ox
98.4 F 89 18 150/85 98
03/24/24 07:30 03/24/24 07:30 03/24/24 07:30 03/24/24 07:30 03/24/24 07:30
Lab Results - Hematology
03/21/24 03/22/24 03/23/24
19:09 07:14 06:16
WBC 12.4 H 10.4 10.9 H
03/24/24
06:27
WBC 12.9 H
Lab Results - Chemistry
03/21/24 03/22/24 03/23/24
19:09 07:14 06:16
BUN 54 H 39 H 23 H
Creatinine 1.7 H 1.0 0.7
Estimated Creat Clear 25 42 61
Albumin 3.4 L 3.2 L 2.9 L
03/24/24
06:27
BUN 17
Creatinine 0.6
Estimated Creat Clear 71
Albumin 3.4 L
Microbiology Results
03/22/24 17:00 Wound Culture - Preliminary
Knee - Right Gram Stain - Preliminary
03/22/24 17:00 Anaerobic Culture - Preliminary
Knee - Right Culture pending. Anaerobic cultures are examined after 3
days incubation. Additional information to follow.
03/21/24 20:36 Body Fluid Culture - Preliminary
Knee - Right Gram Stain - Preliminary
03/21/24 23:43 MRSA Screen - Final
Nose No Methicillin Resistant Staphylococcus aureus isolated.
Therapeutic Drug Monitoring
Random Vancomycin 7.9 ug/ml 03/23/24 06:16
[2024-03-24] MEDS: MAXIPIME 1000 MG IV (08:40)
[2024-03-24] MEDS: EFFEXOR XR 150 MG PO (08:41)
[2024-03-24] MEDS: STERILE WATER FOR INJECTION 10 ML IV (08:41)
[2024-03-24] MEDS: FLUSH (NSS) 2 FLUSH IV ×3 (08:41→17:23)
[2024-03-24] MEDS: ROXICODONE 10 MG PO (08:47)
[2024-03-24] MEDS: CRESTOR 10 MG PO (09:41)
--- NOTE | 2024-03-24 12:29 | W.PN.HOSP.TC ---
Today's Communication/Plan
-
continue IV Abx for Group G strep; ID following
Plastics following
Ortho consulted
Assessment / Plan
Assessment / Plan
Assessment:
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
- prior R knee seroma washout with drain 02/27, prior R TKR 05/27 and subsequent seroma removal 09/2023 (also multiple Arthrocenteses by ortho Dr. Maria at [facility])
- sent in by Dr. Hernandez Plastic surgery in consultation with Orthopedics
- s/p R knee drainage in ER
- MRI showed : Severe soft tissue swelling and subcutaneous edema in the anterior right knee consistent with SEVERE CELLULITIS. Surgical drain in the anterior soft tissues of the right knee. LARGE 5.7 cm EXTRA-ARTICULAR FLUID COLLECTION overlying
the anteromedial medial tibial plateau. Diagnostic possibilities are (1) a soft tissue abscess or (2) an aseptic fluid collection. LARGE RIGHT KNEE JOINT EFFUSION suspicious for prosthesis infection. Right total knee arthroplasty in place.
- s/p Right knee superficial soft tissue I+D, drain replacement 03/22 by Mary
- OR cultures growing group G strep
- continue IV Abx and ID following. May need PICC line
- Ortho consulted management of underlying knee joint effusion
- pain control - multi-modal
Anemia
- follow CBC
Hypokalemia euvolemic secondary diuretic
- replete via IV
- hold HCTZ
- follow BMP
HAILY likely dehydration possible CKD 4
- resolved with IVF
- hold HCTZ
- follow BMP
Essential HTN
- hold HCTZ/BISHOP
- previously was on Amlodipine, but stopped d/t peripheral edema
- prn IV hydralazine
HLD
- continue Crestor 10 mg daily
Anxiety
Insomnia
- continue Xanax 0.5 mg at bedtime, Effexor 150 mg daily
Ex-smoker
- 31-year 1 pack a day quit 2017
Daily marijuana vaping
- cessation advised
Hx schwannoma T8 with removal and laminectomy
Oral cancer removal 04/23/2018
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
DVT prophylaxis: SCDs
Code: Full
Anticipated Discharge: > 48 hours
Subjective/Interval History
-
Date of Service: March 24, 2024
denies any new complaints at present
Objective Data
-
Labs:
Laboratory Results
03/24/24
06:27
WBC 12.9 H
Hgb 10.8 L
Hct 31.9 L
Plt Count 383
Sodium 141
Potassium 3.7
Chloride 107
Carbon Dioxide 22
BUN 17
Creatinine 0.6
Glucose 100 H
Calcium 9.6
Total Bilirubin 0.3
AST 23
ALT 17
Alkaline Phosphatase 139 H
Vital Signs:
Vital Signs
Temp Pulse Resp BP Pulse Ox
98.4 F 89 18 150/85 98
03/24/24 07:30 03/24/24 07:30 03/24/24 07:30 03/24/24 07:30 03/24/24 07:30
I&O
03/23/24 03/24/24 03/25/24
06:59 06:59 06:59
Intake Total 2019 2390 / 2390
Output Total 40 / 40
Balance 2004 2350 / 2350
Physical Exam
-
General: No Apparent Distress
HEENT: Normocephalic and Atraumatic
Respiratory: Negative Wheezes
Cardiac: Regular Rhythm and S1/S2
GI: Soft
Genito-urinary: No Costovertebral Tender
Musculoskeletal: Other (R knee in immobilizer)
Neuro: AO x 3
Hematologic / Lymphatic: No Lymphadenopathy
Psych: Calm
Data Reviewed
-
Total Time Spent with Patient (in minutes): 45
Labs: Labs Reviewed by me
--- NOTE | 2024-03-24 14:04 | W.PN.ID1 ---
Date of Service
Date of Service: March 24, 2024
Today's Communication
Continue antibiotics. Narrow to cefazolin.
Assessment / Plan
Suspected right knee PJI due to Gp G strep
HTN
HLD
anxiety
insomnia
Recommendations:
Cultures with Gp G strep.
Transition to cefazolin 2 gm IV q8h
- plastics is following patient
- follow clinically
Await Ortho eval.
Subjective / Review of Systems
Review of Systems: No Fever and No Chills
Vital Signs / Physical Exam
Vital Signs
Vital Signs
Temp Pulse Resp BP Pulse Ox
98.4 F 89 18 150/85 98
03/24/24 07:30 03/24/24 07:30 03/24/24 07:30 03/24/24 07:30 03/24/24 07:30
Physical Exam
Constitutional: No Acute Distress, Comfortable and Non-toxic
Eyes: Sclera Anicteric
Pulmonary: Non Labored
Gastrointestinal: Non Distended
Musculoskeletal: Other (JOSHUA in place to right knee area)
Neurological: Awake and Alert
Psychological: Calm
Objective Data
Lab Data
Lab Results
03/24/24 06:27
03/24/24 06:27
ESR 114 mm/hour (0-20) H 03/24/24 06:27
Estimated Creat Clear 71 ml/min 03/24/24 06:27
Total Bilirubin 0.3 mg/dl (0.2-1.3) 03/24/24 06:27
AST 23 U/L (14-36) 03/24/24 06:27
ALT 17 U/L (0-35) 03/24/24 06:27
Alkaline Phosphatase 139 U/L (38-126) H 03/24/24 06:27
C-Reactive Protein 222.60 mg/L (0.0-10.00) H 03/24/24 06:27
Most recent labs reviewed.
Micro Results:
03/22/24 17:00 Wound Culture - Preliminary
Knee - Right Group G Streptococcus
Gram Stain - Preliminary
03/22/24 17:00 Anaerobic Culture - Preliminary
Knee - Right Culture pending. Anaerobic cultures are examined after 3
days incubation. Additional information to follow.
03/21/24 20:36 Body Fluid Culture - Preliminary
Knee - Right Group G Streptococcus
Gram Stain - Preliminary
03/21/24 23:43 MRSA Screen - Final
Nose No Methicillin Resistant Staphylococcus aureus isolated.
Care Review
Plan reviewed with: Physician (Hospitalist)
[2024-03-24 15:30] VITALS: BP 169/94
[2024-03-24] MEDS: ANCEF 10 IV (16:35)
[2024-03-24] MEDS: APRESOLINE 10 MG IV ×2 (17:21→23:26)
[2024-03-24] MEDS: XANAX 0.5 MG PO (21:26)
[2024-03-24] MEDS: TYLENOL 650 MG PO (23:24)
[2024-03-24 23:43] VITALS: BP 165/96
[2024-03-25] MEDS: ANCEF 10 IV ×4 (00:11→23:51)
[2024-03-25] MEDS: ROXICODONE 5 MG PO ×2 (00:21→21:39)
[2024-03-25 00:30] VITALS: BP 131/73
[2024-03-25 05:27] VITALS: BMI 27.2
[2024-03-25 06:01] LABS: Hemoglobin 11.4 g/dL (12.0-16.0); Mean Corp Hgb Conc. 35.6 g/dL (33.0-37.0); Mean Corpuscular Hgb 28.4 pg (27.0-31.0); Mean Corpuscular Volume 79.6 fL (81.0-99.0); Platelet Count 468 10^3/uL (130-400); Red Blood Cell Count 4.02 10^6/uL (4.20-5.40); Red Cell Dist. Width 14.3 % (11.5-14.5); White Blood Cell Count 12.4 10^3/uL (4.8-10.8)
[2024-03-25 06:28] LABS: Blood Urea Nitrogen 11 mg/dl (7-17); Calcium 9.6 mg/dl (8.4-10.2); Carbon Dioxide 27 mmol/L (22-30); Chloride 102 mmol/L (98-107); Estimated Creatinine Clearance 70 ml/min; Glucose 100 mg/dl (70-99); Potassium 3.8 mmol/L (3.5-5.1); Sodium 139 mmol/L (135-145); eGFR > 60.00
[2024-03-25 06:44] LABS: Erythrocyte Sed Rate 107 mm/hour (0-20)
[2024-03-25 07:40] VITALS: BP 154/95
[2024-03-25] MEDS: EFFEXOR XR 150 MG PO (08:39)
[2024-03-25] MEDS: CRESTOR 10 MG PO (08:39)
[2024-03-25] MEDS: TYLENOL 650 MG PO (09:37)
--- NOTE | 2024-03-25 10:10 | W.PN.ID1 ---
Date of Service
Date of Service: March 25, 2024
Today's Communication
Continue with cefazolin.
Assessment / Plan
Suspected right knee PJI due to Gp G strep
Right knee fluid collection s/p drainage
HTN
HLD
anxiety
insomnia
Recommendations:
Fluid cultures (non-joint) with Gp G strep.
Transition to cefazolin 2 gm IV q8h
Plastics is following patient
Follow clinically
Given presence of joint effusion, would recommend Orthopedics evaluation.
Subjective / Review of Systems
Review of Systems: No Fever and No Chills
Vital Signs / Physical Exam
Vital Signs
Vital Signs
Temp Pulse Resp BP Pulse Ox
99.4 F 98 18 154/95 97
03/25/24 07:40 03/25/24 07:40 03/25/24 07:40 03/25/24 07:40 03/25/24 07:40
Physical Exam
Constitutional: No Acute Distress, Comfortable and Non-toxic
Eyes: Sclera Anicteric
Pulmonary: Non Labored
Gastrointestinal: Non Distended
Musculoskeletal: Other (JOSHUA in place to right knee area; serous fluid.)
Skin: Warm and Dry; Negative Rash or Jaundice
Neurological: Awake and Alert
Psychological: Calm
Objective Data
Lab Data
Lab Results
03/25/24 05:12
03/25/24 05:12
ESR 107 mm/hour (0-20) H 03/25/24 05:12
Estimated Creat Clear 70 ml/min 03/25/24 05:12
Total Bilirubin 0.3 mg/dl (0.2-1.3) 03/24/24 06:27
AST 23 U/L (14-36) 03/24/24 06:27
ALT 17 U/L (0-35) 03/24/24 06:27
Alkaline Phosphatase 139 U/L (38-126) H 03/24/24 06:27
C-Reactive Protein 200.50 mg/L (0.0-10.00) H 03/25/24 05:12
Most recent labs reviewed.
Micro Results:
03/22/24 17:00 Wound Culture - Preliminary
Knee - Right Group G Streptococcus
Gram Stain - Preliminary
03/22/24 17:00 Anaerobic Culture - Preliminary
Knee - Right Culture pending. Anaerobic cultures are examined after 3
days incubation. Additional information to follow.
03/21/24 20:36 Body Fluid Culture - Preliminary
Knee - Right Group G Streptococcus
Gram Stain - Preliminary
03/21/24 23:43 MRSA Screen - Final
Nose No Methicillin Resistant Staphylococcus aureus isolated.
--- NOTE | 2024-03-25 10:15 | W.PN.HOSP.TC ---
Today's Communication/Plan
-
Ortho eval for Right knee effusion
Plan for PICC line and homecare
C/W Cefazolin 2g Q8
Assessment / Plan
Assessment / Plan
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
-prior R knee seroma washout with drain 02/27, prior R TKR 05/27 and subsequent seroma removal 09/2023
-Has also had multiple Arthrocenteses by ortho Dr. Maria at [facility] for this issue
-Sent in by Dr. Hernandez Plastic surgery in consultation with Orthopedics; s/p R knee drainage in ER
-MRI showed severe soft tissue swelling and subcutaneous edema in the anterior right knee, 5.7 cm EXTRA-ARTICULAR FLUID COLLECTION overlying the anteromedial tibial plateau, large right knee effusion
-S/P Right knee superficial soft tissue I+D, drain replacement 03/22 by Mary; OR cultures growing group G strep
-Currently on IV cefazolin 2g Q8 hours, will need 6 week course per orthopedics and ID
Plan
-Continue IV cefazolin 2g Q8, arrange for PICC line and homecare
-Ortho consulted management of underlying knee joint effusion
-C/w multimodal pain contro, wean opioids
-Trend CBC and inflammatory markers
#Anemia
-Likely due to blood loss from OR, acute disease state
-No evidence of nutritional deficiency at this time
-Hb is uptrending since OR
-follow CBC
#HAILY
-Suspect pre-renal as renal function normalized with IVF
-HCTZ and lisinopril were held on admission
-Resolved
#Essential HTN
-No known history of systemic complications
-Home regimen of HCTZ/ACEi held on admission for pre-renal HAILY
-BP has been elevated since arrival, SBP 154 mmHg on last check
-C/W PRN hydralazine, plan for re-introduction of ACEi as out-patient
#HLD
-No known history of ASCVD but does has risk with smoking history
-Continued on home regimen of Crestor 10 mg daily
#Anxiety
#Insomnia
-continue Xanax 0.5 mg at bedtime, Effexor 150 mg daily
-Provided extra dose of Xanax today as she was very anxious on my eval
#Ex-smoker
-31-year 1 pack a day quit 2017
#Daily marijuana vaping
-cessation advised
#Hx schwannoma T8 with removal and laminectomy
#Oral cancer removal 04/23/2018
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
DVT prophylaxis: SCDs
Diet: House
Dispo: Likely DC to home tomorrow, with homecare
Code: Full
Anticipated Discharge: Within 24 hours
Subjective/Interval History
-
Date of Service: March 25, 2024
Seen and examined at bedside. No acute events overnight. Anxious to leave hospital. Feels like she is improving otherwise. Minimal right knee pain today. Blood tinged fluid from drain. She is frustrated at being woken up in the night frequently.
Objective Data
-
Labs:
Laboratory Results
03/25/24
05:12
WBC 12.4 H
Hgb 11.4 L
Hct 32.0 L
Plt Count 468 H D
Sodium 139
Potassium 3.8
Chloride 102
Carbon Dioxide 27
BUN 11
Creatinine 0.6
Glucose 100 H
Calcium 9.6
Vital Signs:
Vital Signs
Temp Pulse Resp BP Pulse Ox
99.4 F 98 18 154/95 97
03/25/24 07:40 03/25/24 07:40 03/25/24 07:40 03/25/24 07:40 03/25/24 07:40
I&O
03/24/24 03/25/24 03/26/24
06:59 06:59 06:59
Intake Total 2390 / 2390 1560 / 1560
Output Total 40 / 40 30 / 30
Balance 2350 / 2350 1530 / 1530
Review of Systems
-
History Source: Patient
All other systems: Reviewed and negative
Constitutional: Reports No Symptoms and Fatigue; Denies Fever or Chills
Respiratory: Reports No Symptoms
Cardiac: Reports No Symptoms
Abdomen/GI: Reports No Symptoms
Genitourinary: Reports No Symptoms
Musculoskeletal: Reports Joint Pain
Skin: Reports No Symptoms
Neuro: Reports No Symptoms
Hematologic / Lymphatic: Reports No Symptoms
Physical Exam
-
General: Well Nourished and No Apparent Distress
HEENT: Normocephalic, Atraumatic and Moist Mucous Membranes
Respiratory: Clear to Auscultation
Cardiac: Regular Rhythm and S1/S2; Negative Murmur, Rub, JVD or Gallop
GI: Soft, Nontender, Nondistended and Normal Bowel Sounds
Musculoskeletal: Other (Mild Right knee tenderness, currently in brace)
Skin: Warm, Dry and Normal Turgor; Negative Rash
Neuro: AO x 3, Nonfocal/Grossly Intact and Central Nerve's Intact
Hematologic / Lymphatic: Negative Lymphadenopathy
Psych: Anxious
Data Reviewed
-
Diagnostic Radiology: Report Reviewed by me
Labs: Labs Reviewed by me
[2024-03-25] MEDS: XANAX 0.5 MG PO ×2 (10:38→22:36)
--- NOTE | 2024-03-25 15:31 | CM ---
Reviewed the chart notes and spoke with the patient at the bedside. Per notes, the patient will be discharged to home with IV abx and [facility]N homecare. Discussed VN agencies with the patient. [facility]. Referral sent in [facility]. continues
to be available to patient/family and is monitoring medical plan for needs at discharge.
Plan: Discharge to home with IV abx and [facility]N homecare services. Will need script to send to infusion company for pricing.
[2024-03-25 15:45] VITALS: BP 135/83
[2024-03-25 23:18] VITALS: BP 145/81
[2024-03-26 05:47] VITALS: BMI 26.8
[2024-03-26 06:05] LABS: Hematocrit 28.9 % (37.0-47.0); Hemoglobin 9.7 g/dL (12.0-16.0); Mean Corp Hgb Conc. 33.6 g/dL (33.0-37.0); Mean Corpuscular Volume 80.5 fL (81.0-99.0); Mean Platelet Volume 9.7 fL (7.4-10.4); Platelet Count 378 10^3/uL (130-400); Red Blood Cell Count 3.59 10^6/uL (4.20-5.40); Red Cell Dist. Width 14.6 % (11.5-14.5); White Blood Cell Count 15.4 10^3/uL (4.8-10.8)
[2024-03-26 06:30] LABS: Blood Urea Nitrogen 13 mg/dl (7-17); Calcium 9.1 mg/dl (8.4-10.2); Carbon Dioxide 27 mmol/L (22-30); Chloride 101 mmol/L (98-107); Estimated Creatinine Clearance 70 ml/min; Glucose 100 mg/dl (70-99); Potassium 3.7 mmol/L (3.5-5.1); Sodium 138 mmol/L (135-145); eGFR > 60.00
[2024-03-26 07:04] LABS: Erythrocyte Sed Rate 136 mm/hour (0-20)
[2024-03-26 07:45] VITALS: BP 136/83
[2024-03-26] MEDS: EFFEXOR XR 150 MG PO (08:04)
[2024-03-26] MEDS: CRESTOR 10 MG PO (08:04)
[2024-03-26] MEDS: ANCEF 10 IV ×3 (08:04→23:51)
[2024-03-26] MEDS: XANAX 0.5 MG PO ×2 (10:13→22:49)
--- NOTE | 2024-03-26 11:10 | CM ---
Reviewed the chart notes. [facility] has accepted the patient when discharged. Anticipated patient will require IV abx at discharge. Ortho consult pending. CM continues to be available to patient/family and is monitoring medical plan for needs at
discharge.
Plan: Discharge to home with [facility] and on IV abx.
[2024-03-26] MEDS: HYDROPHOR 1 APPLIC TOPICAL (11:18)
--- NOTE | 2024-03-26 13:05 | W.PN.UPDATE ---
Update Note
Progress Note Update
I thoroughly reviewed the patient's chart and reviewed her history since May 2023 after right TKA (Dr. Rodgers at [facility]). patient has now undergone right TKA and 3 subsequent surgeries since, given recurrence of fluid collection over
the anterior knee, most recently during this admission via Dr. Hernandez (Plastic surgery). there also has to be concern for the potential of a PJI here as well. This patient's orthopedic situation is quite complex and really exceeds the care we are
capable of providing here [facility] [place]. additionally the likelihood of wound breakdown over the anterior knee is significantly elevated given the number of surgeries she has had in the last 10 months. we are advocating for
a transfer to a tertiary center, like the [facility], for her continued care. I spoke to attending hospitalist, Dr. Collins. Dr. Quezada had also spoken to Dr. Hernandez. Everyone seems to be in agreement with this plan. at this point
we will place a call to the [facility] transfer center to speak directly to the attending orthopedist who will hopefully accept her in transfer (Dr. Pal). I had a very long conversation with the patient explaining my/our
recommendations. Although frustrated she was extremely appreciative of us advocating for her and is completely on board with continuing her care in a [place] setting. I am hoping we can arrange for a transfer soon
--- NOTE | 2024-03-26 14:01 | W.PN.HOSP.TC ---
Today's Communication/Plan
-
Continue IV cefazolin
Communicate with [facility] for transfer
Assessment / Plan
Assessment / Plan
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
-prior R knee seroma washout with drain 02/27, prior R TKR 05/27 and subsequent seroma removal 09/2023
-Has also had multiple Arthrocenteses by ortho Dr. Maria at [facility] for this issue
-Sent in by Dr. Hernandez Plastic surgery in consultation with Orthopedics; s/p R knee drainage in ER
-MRI showed severe soft tissue swelling and subcutaneous edema in the anterior right knee, 5.7 cm EXTRA-ARTICULAR FLUID COLLECTION overlying the anteromedial tibial plateau, large right knee effusion
-S/P Right knee superficial soft tissue I+D, drain replacement 03/22 by Mary; OR cultures growing group G strep
-Currently on IV cefazolin 2g Q8 hours, will need 6 week course per orthopedics and ID
Plan
-Continue IV cefazolin 2g Q8 based off surgical wound culture susceptibilities
-Planning for transfer to tertiary center for PJI, likely requiring multiple procedures
-Considerright knee joint aspiration to confirm diagnosis of PJI
-C/w multimodal pain control, wean opioids
-Trend CBC and inflammatory markers
#Anemia
-Likely due to blood loss from OR, acute disease state
-No evidence of nutritional deficiency at this time
-Hb is uptrending since OR
-follow CBC
#HAILY
-Suspect pre-renal as renal function normalized with IVF
-HCTZ and lisinopril were held on admission
-Resolved
#Essential HTN
-No known history of systemic complications
-Home regimen of HCTZ/ACEi held on admission for pre-renal HAILY
-BP has been elevated since arrival, SBP 154 mmHg on last check
-C/W PRN hydralazine, plan for re-introduction of ACEi as out-patient
#HLD
-No known history of ASCVD but does has risk with smoking history
-Continued on home regimen of Crestor 10 mg daily
#Anxiety
#Insomnia
-continue Xanax 0.5 mg at bedtime, Effexor 150 mg daily
-Provided extra dose of Xanax today as she was very anxious on my eval
#Ex-smoker
-31-year 1 pack a day quit 2017
#Daily marijuana vaping
-cessation advised
#Hx schwannoma T8 with removal and laminectomy
#Oral cancer removal 04/23/2018
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
DVT prophylaxis: SCDs
Diet: House
Dispo: Potential discharge to [facility]
Code: Full
Anticipated Discharge: > 48 hours
Subjective/Interval History
-
Date of Service: March 26, 2024
No acute events overnight. She has no complaints today though is anxious to be out of the hospital. Denies fevers or chills, chest pain, shortness of breath. Remains hemodynamically stable.
After speaking with orthopedics team they recommend transfer to tertiary center for likely PJI of the right knee, likely requiring multiple procedures for source control
Objective Data
-
Labs:
Laboratory Results
03/26/24
05:42
WBC 15.4 H
Hgb 9.7 L
Hct 28.9 L
Plt Count 378
Sodium 138
Potassium 3.7
Chloride 101
Carbon Dioxide 27
BUN 13
Creatinine 0.5 L
Glucose 100 H
Calcium 9.1
Vital Signs:
Vital Signs
Temp Pulse Resp BP Pulse Ox
99.0 F 87 16 136/83 96
03/26/24 07:45 03/26/24 07:45 03/26/24 07:45 03/26/24 07:45 03/26/24 07:45
I&O
03/25/24 03/26/24 03/27/24
06:59 06:59 06:59
Intake Total 1560 / 1560 1180 / 1180
Output Total
Balance 1530 / 1530 1165 / 1165
Review of Systems
-
History Source: Patient
Constitutional: Reports No Symptoms
Respiratory: Reports No Symptoms
Cardiac: Reports No Symptoms
Abdomen/GI: Reports No Symptoms
Genitourinary: Reports No Symptoms
Musculoskeletal: Reports No Symptoms
Skin: Reports No Symptoms
Neuro: Reports No Symptoms
Physical Exam
-
General: Well Nourished, No Apparent Distress and Comfortable
HEENT: Normocephalic, Atraumatic, Moist Mucous Membranes and Anicteric
Respiratory: Clear to Auscultation and Non Labored Respirations; Negative Wheezes, Rales or Rhonchi
Cardiac: Regular Rhythm and S1/S2; Negative Murmur, Rub, JVD or Gallop
GI: Soft, Nontender, Nondistended and Normal Bowel Sounds
Musculoskeletal: No Clubbing, No Cyanosis, No Edema and Other (Erythematous right knee with swelling near surgical scar, no objective purulence or fluctuance)
Skin: Warm and Dry; Negative Rash
Neuro: AO x 3, Nonfocal/Grossly Intact and Central Nerve's Intact
Psych: Anxious
Data Reviewed
-
CT Scan: Discussed with Physician
Labs: Labs Reviewed by me
--- NOTE | 2024-03-26 14:08 | PTCARENOTE ---
Wound care orders per Dr. Hernandez. Wound care done. R knee warm to touch, +1 edema and red. Picture sent to Dr. Collins, DARRELL and Dr. Hernandez. No new orders at this time.
[2024-03-26] MEDS: TYLENOL 650 MG PO (14:41)
[2024-03-26 15:41] VITALS: BP 140/85
[2024-03-26] MEDS: ROXICODONE 5 MG PO (21:37)
[2024-03-26 23:21] VITALS: BP 151/82
[2024-03-27 06:00] VITALS: BMI 26.8
[2024-03-27 06:40] VITALS: BMI 26.8
--- NOTE | 2024-03-27 06:40 | W.PN.UPDATE ---
Update Note
Progress Note Update
Dr. Quezada reached out to [place] transfer center yesterday and never received a return call. Their initial recommendation was to have patient return to primary operating surgeon (Javier). Unfortunately, patient does not wish to continue follow up
with their team. 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 Patient has had several
surgeries on this extremity, including plastics procedure, which increases the complexity of the situation, and leads to greater likelihood of wound breakdown. Additionally, given that patient had received treatment on antibiotics prior to
aspiration, the risk of a false result from aspiration is >50%. This can be mitigated with next generation sequencing which is not available to us at . Given these factors, we would recommend transferring hospitalist to hospitalist service and
consulting orthopedics upon admission at [facility]. I discussed this with the patient this AM, and she is in agreement.
[2024-03-27] MEDS: ANCEF 10 IV ×3 (08:55→23:33)
[2024-03-27 08:56] LABS: Blood Urea Nitrogen 15 mg/dl (7-17); Calcium 9.4 mg/dl (8.4-10.2); Carbon Dioxide 29 mmol/L (22-30); Chloride 99 mmol/L (98-107); Estimated Creatinine Clearance 70 ml/min; Glucose 89 mg/dl (70-99); Potassium 3.5 mmol/L (3.5-5.1); Sodium 138 mmol/L (135-145); eGFR > 60.00
[2024-03-27] MEDS: EFFEXOR XR 150 MG PO (08:56)
[2024-03-27] MEDS: CRESTOR 10 MG PO (08:56)
[2024-03-27] MEDS: HYDROPHOR 1 APPLIC TOPICAL (08:58)
[2024-03-27 09:06] LABS: Mean Corp Hgb Conc. 33.3 g/dL (33.0-37.0); Mean Corpuscular Hgb 26.5 pg (27.0-31.0); Mean Corpuscular Volume 79.6 fL (81.0-99.0); Mean Platelet Volume 9.2 fL (7.4-10.4); Platelet Count 454 10^3/uL (130-400); Red Blood Cell Count 3.77 10^6/uL (4.20-5.40); Red Cell Dist. Width 14.5 % (11.5-14.5); White Blood Cell Count 16.7 10^3/uL (4.8-10.8)
[2024-03-27 10:24] LABS: Erythrocyte Sed Rate 95 mm/hour (0-20)
[2024-03-27] MEDS: XANAX 0.5 MG PO ×2 (10:33→22:45)
[2024-03-27] MEDS: ROXICODONE 10 MG PO (13:45)
[2024-03-27 14:00] VITALS: BP 120/79
[2024-03-27 15:20] VITALS: BP 130/81
--- NOTE | 2024-03-27 15:29 | W.PN.HOSP.TC ---
Today's Communication/Plan
-
Continue IV cefazolin
Arrange transfer to [facility]
Trend WBC and inflammatory markers
Assessment / Plan
Assessment / Plan
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
-prior R knee seroma washout with drain 02/27, prior R TKR 05/27 and subsequent seroma removal 09/2023
-Has also had multiple Arthrocenteses by ortho Dr. Maria at [facility] for this issue
-Sent in by Dr. Hernandez Plastic surgery in consultation with Orthopedics; s/p R knee drainage in ER
-MRI showed severe soft tissue swelling and subcutaneous edema in the anterior right knee, 5.7 cm EXTRA-ARTICULAR FLUID COLLECTION overlying the anteromedial tibial plateau, large right knee effusion
-S/P Right knee superficial soft tissue I+D, drain replacement 03/22 by Mary; OR cultures growing group G strep
-Currently on IV cefazolin 2g Q8 hours, WBC uptrending though inflammatory markers downtrending
Plan
-Continue IV cefazolin 2g Q8 based off surgical wound culture susceptibilities
-Planning for transfer to tertiary center for PJI for next Gen sequencing
-C/w multimodal pain control, wean opioids
-Trend CBC and inflammatory markers
#Anemia
-Likely due to blood loss from OR, acute disease state
-No evidence of nutritional deficiency at this time
-Hemoglobin trend stable
#HAILY
-Suspect pre-renal as renal function normalized with IVF
-HCTZ and lisinopril were held on admission
-Resolved
#Essential HTN
-No known history of systemic complications, no regimen of HCTZ and BISHOP inhibitor
-Home regimen was held for HAILY, blood pressure has been well-controlled without these meds
-C/W PRN hydralazine, plan for re-introduction of ACEi as out-patient if needed
#HLD
-No known history of ASCVD but does has risk with smoking history
-Continued on home regimen of Crestor 10 mg daily
#Anxiety
#Insomnia
-continue Xanax 0.5 mg at bedtime, Effexor 150 mg daily
-Provided extra dose of Xanax today as she was very anxious on my eval
#Ex-smoker
-31-year hx, quit 2017
#Daily marijuana vaping
-cessation advised
#Hx schwannoma T8 with removal and laminectomy
#Oral cancer removal 04/23/2018
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
DVT prophylaxis: SCDs
Diet: House
Code: Full
Anticipated Discharge: > 48 hours
Subjective/Interval History
-
Date of Service: March 27, 2024
Seen and examined at bedside. No events overnight. She says she feels well and is in good spirits today. Had mild right ankle swelling which is improving. Denies chest pain, shortness of breath, fevers or chills today. She denies any worsening
pain to the right knee, states that when he changed her bandage today that it looked less pink
We are still communicating with you plan for potential transfer to the total joint service. Patient would likely require NexGen sequencing to confirm PJI of the right knee as she has been on cefazolin IV for multiple days.
Objective Data
-
Labs:
Laboratory Results
03/27/24
07:51
WBC 16.7 H
Hgb 10.0 L
Hct 30.0 L
Plt Count 454 H D
Sodium 138
Potassium 3.5
Chloride 99
Carbon Dioxide 29
BUN 15
Creatinine 0.6
Glucose 89
Calcium 9.4
Vital Signs:
Vital Signs
Temp Pulse Resp BP Pulse Ox
98.0 F 85 16 120/79 96
03/27/24 14:00 03/27/24 14:00 03/27/24 14:00 03/27/24 14:00 03/27/24 14:00
I&O
03/26/24 03/27/24 03/28/24
06:59 06:59 06:59
Intake Total 1180 / 1180 1800 / 1800
Output Total
Balance 1165 / 1165 1795 / 1795
Review of Systems
-
History Source: Patient
Constitutional: Reports No Symptoms; Denies Fever or Chills
Respiratory: Reports No Symptoms
Cardiac: Reports No Symptoms
Abdomen/GI: Reports No Symptoms
Breast: Reports No Symptoms
Genitourinary: Reports No Symptoms
Musculoskeletal: Reports No Symptoms
Skin: Reports No Symptoms
Neuro: Reports No Symptoms
Physical Exam
-
General: Well Nourished, No Apparent Distress, Comfortable and Conversant
HEENT: Normocephalic, Atraumatic, Moist Mucous Membranes and Anicteric
Respiratory: Clear to Auscultation and Non Labored Respirations
Cardiac: Regular Rhythm, S1/S2 and Murmur; Negative Rub, JVD or Gallop
GI: Soft, Nontender, Nondistended and Normal Bowel Sounds
Musculoskeletal: No Clubbing, No Cyanosis, No Edema and Other ([place] drainage from right knee surgical drain, no purulence noted)
Skin: Warm, Dry and Other (Right knee surgical wound with overlying bandaging); Negative Rash
Neuro: AO x 3, Nonfocal/Grossly Intact and Central Nerve's Intact; Negative Tremors
Data Reviewed
-
Labs: Labs Reviewed by me
--- NOTE | 2024-03-27 15:55 | CM ---
Reviewed the chart notes. Attending attempting to have patient transferred to [facility]. CM continues to be available to patient/family and is monitoring medical plan for needs at discharge.
Plan: Transfer to [facility] when bed available.
--- NOTE | 2024-03-27 17:19 | W.PN.PLAS ---
Progress Note
Objective Data
Vital Signs
Temp Pulse Resp BP Pulse Ox
98.8 F 81 18 130/81 98
03/27/24 15:20 03/27/24 15:20 03/27/24 15:20 03/27/24 15:20 03/27/24 15:20
Intake and Output
03/26/24 03/27/24 03/28/24
06:59 06:59 06:59
Intake Total 1180 / 1180 1800 / 1800
Output Total
Balance 1165 / 1165 1795 / 1795
Intake:
Oral fluids 1180 / 1180 1800 / 1800
Output:
Drain Output (Total)
Right Cruz-Ortega
Other:
Number of approximated MODERATE 3 1
amounts of urine
Number of approximated LARGE 2
amounts of urine
Number of unmeasured liquid
stools
Rectum 2
Lab Results
03/27/24 07:51
03/27/24 07:51
Microbiology Results
03/21/24 20:36 Knee - Right Body Fluid Culture - Final
Group G Streptococcus
03/21/24 20:36 Knee - Right Gram Stain - Final
03/22/24 17:00 Knee - Right Anaerobic Culture - Final
NO ANAEROBES ISOLATED
03/22/24 17:00 Knee - Right Wound Culture - Final
Group G Streptococcus
03/22/24 17:00 Knee - Right Gram Stain - Final
Assessment / Plan
Wound stable. Patient continues to improve. Doing well. Patient anxious to go.
Patient is stable. Will discharge to home once patient is able to ambulate, void, tolerate a PO diet and pain is adequately controlled.
Visiting Nurse care ordered / not ordered.
Wound care discussed with patient.
Follow up within days.
Follow up with family physician for any medical issues.
Patient given any appropriate scripts at office pre op visit.
[2024-03-27] MEDS: TYLENOL 650 MG PO (17:41)
[2024-03-27] MEDS: ROXICODONE 5 MG PO (22:16)
[2024-03-27 23:26] VITALS: BP 132/80
[2024-03-28 06:00] VITALS: BMI 26.8
[2024-03-28 07:25] VITALS: BP 135/80
[2024-03-28] MEDS: ANCEF 10 IV ×3 (09:03→23:42)
[2024-03-28] MEDS: HYDROPHOR 1 APPLIC TOPICAL (09:04)
[2024-03-28] MEDS: CRESTOR 10 MG PO (09:04)
[2024-03-28] MEDS: EFFEXOR XR 150 MG PO (09:04)
[2024-03-28] MEDS: XANAX 0.5 MG PO ×2 (09:04→22:55)
[2024-03-28] MEDS: TYLENOL 650 MG PO (09:07)
--- NOTE | 2024-03-28 09:15 | W.PN.PLAS ---
Today's Communication
-
Patient will need transfer to a tertiary care center or established short term orthopedic follow up
Progress Note
Objective Data
Vital Signs
Temp Pulse Resp BP Pulse Ox
98.6 F 83 18 135/80 100
03/28/24 07:25 03/28/24 07:25 03/28/24 07:25 03/28/24 07:25 03/28/24 07:25
Intake and Output
03/27/24 03/28/24 03/29/24
06:59 06:59 06:59
Intake Total 1800 / 1800 1160 / 1160
Output Total
Balance 1795 / 1795 1150 / 1150
Intake:
Oral fluids 1800 / 1800 1160 / 1160
Output:
Drain Output (Total)
Right Cruz-Ortega
Other:
Number of approximated MODERATE 1 2
amounts of urine
Number of approximated LARGE 2
amounts of urine
Number of unmeasured liquid
stools
Rectum 2
Microbiology Results
03/21/24 20:36 Knee - Right Body Fluid Culture - Final
Group G Streptococcus
03/21/24 20:36 Knee - Right Gram Stain - Final
03/22/24 17:00 Knee - Right Anaerobic Culture - Final
NO ANAEROBES ISOLATED
03/22/24 17:00 Knee - Right Wound Culture - Final
Group G Streptococcus
03/22/24 17:00 Knee - Right Gram Stain - Final
Assessment / Plan
Wound stable. Patient continues to improve. Doing well. Patient anxious to go.
Patient is stable. Will discharge to home once patient is able to ambulate, void, tolerate a PO diet and pain is adequately controlled.
Visiting Nurse care ordered / not ordered.
Wound care discussed with patient.
Follow up within days.
Follow up with family physician for any medical issues.
Patient given any appropriate scripts at office pre op visit.
[2024-03-28 09:33] LABS: Hematocrit 29.1 % (37.0-47.0); Hemoglobin 9.8 g/dL (12.0-16.0); Mean Corp Hgb Conc. 33.7 g/dL (33.0-37.0); Mean Corpuscular Hgb 27.2 pg (27.0-31.0); Mean Corpuscular Volume 80.8 fL (81.0-99.0); Mean Platelet Volume 9.1 fL (7.4-10.4); Platelet Count 429 10^3/uL (130-400); Red Cell Dist. Width 14.5 % (11.5-14.5); White Blood Cell Count 14.9 10^3/uL (4.8-10.8)
--- NOTE | 2024-03-28 10:12 | W.PN.ID1 ---
Date of Service
Date of Service: March 28, 2024
Today's Communication
continue cefazolin 2 gm IV q8h - likely 6 week course
Awaiting transfer to [facility]; patient believes there is no bed, I have also placed an electronic referral to outpatient [facility] orthopedics at her request. If we plan to have her follow up as an outpatient then we would need to set up for the outpatient
home IV antibiotics, I have given a script to employment case manager to begin evaluating for this possibility and left a message with hospitalist to see if there are any updates
Assessment / Plan
Suspected right knee PJI due to Gp G strep
Right knee fluid collection s/p drainage
HTN
HLD
anxiety
insomnia
Recommendations:
Fluid cultures (non-joint) with Gp G strep.
continue cefazolin 2 gm IV q8h - likely 6 week course
Awaiting transfer to [facility]; patient believes there is no bed, I have also placed an electronic referral to outpatient [facility] orthopedics at her request. If we plan to have her follow up as an outpatient then we would need to set up for the outpatient
home IV antibiotics, I have given a script to employment case manager to begin evaluating for this possibility and left a message with hospitalist to see if there are any updates
Chief Complaint
-: Other (suspected PJI)
Subjective / Review of Systems
afebrile
bp stable
improving leukocytosis
improving thrombocytosis
cr 0.6
tolerating current therapies
Vital Signs / Physical Exam
Vital Signs
Vital Signs
Temp Pulse Resp BP Pulse Ox
98.6 F 83 18 135/80 100
03/28/24 07:25 03/28/24 07:25 03/28/24 07:25 03/28/24 07:25 03/28/24 07:25
Physical Exam
Constitutional: No Acute Distress
Cardiovascular: Regular Rate and S1/S2; Negative Murmur or Rub
Pulmonary: Clear and Symmetric; Negative Wheezes or Rales
Gastrointestinal: Soft, Non Tender, Non Distended and Normal Bowel Sounds
Skin: Warm and Dry; Negative Rash or Jaundice
Objective Data
Lab Data
Lab Results
03/28/24 08:54
ESR 95 mm/hour (0-20) H 03/27/24 07:51
Estimated Creat Clear 70 ml/min 03/27/24 07:51
Total Bilirubin 0.3 mg/dl (0.2-1.3) 03/24/24 06:27
AST 23 U/L (14-36) 03/24/24 06:27
ALT 17 U/L (0-35) 03/24/24 06:27
Alkaline Phosphatase 139 U/L (38-126) H 03/24/24 06:27
C-Reactive Protein 180.50 mg/L (0.0-10.00) H 03/27/24 07:51
Most recent labs reviewed.
Micro Results:
03/21/24 20:36 Body Fluid Culture - Final
Knee - Right Group G Streptococcus
Gram Stain - Final
03/22/24 17:00 Anaerobic Culture - Final
Knee - Right NO ANAEROBES ISOLATED
03/22/24 17:00 Wound Culture - Final
Knee - Right Group G Streptococcus
Gram Stain - Final
03/21/24 23:43 MRSA Screen - Final
Nose No Methicillin Resistant Staphylococcus aureus isolated.
Care Review
Plan reviewed with: Physician (Dr Dennis cook)
[2024-03-28 10:41] LABS: Erythrocyte Sed Rate 90 mm/hour (0-20)
[2024-03-28 11:13] LABS: Blood Urea Nitrogen 16 mg/dl (7-17); Calcium 8.9 mg/dl (8.4-10.2); Carbon Dioxide 27 mmol/L (22-30); Chloride 103 mmol/L (98-107); Estimated Creatinine Clearance 70 ml/min; Glucose 78 mg/dl (70-99); Potassium 3.8 mmol/L (3.5-5.1); Sodium 137 mmol/L (135-145); eGFR > 60.00
--- NOTE | 2024-03-28 11:56 | W.PN.UPDATE ---
Update Note
Progress Note Update
Patient seen on morning rounds by both Dr. Quezada and myself. Unfortunately, [facility] has declined accepting care of Ms. Avalos going forward even though her wishes are to proceed with definitive care of her right knee through them. Had a lengthy
discussion in regards to options going forward, including discharge on IV antibiotics as she is medically stable (WBC count, ESR, and CRP trending down) with outpatient follow up at [facility]. At this time, she is apprehensive to consider this
as an option and would like to discuss alternatives available here at [facility]. She has seen Dr. Reed in the office in regards to this right knee, so he will be by to see patient later today to discuss definitive recommendations going forward.
--- NOTE | 2024-03-28 13:22 | W.PN.HOSP.TC ---
Today's Communication/Plan
-
Await evaluation by Dr. Jacob from orthopedics
Reach out to [facility] for close office follow-up if needed
Continue with IV cefazolin and trend CBC and inflammatory markers
Assessment / Plan
Assessment / Plan
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
-prior R knee seroma washout with drain 02/27, prior R TKR 05/27 and subsequent seroma removal 09/2023
-Has also had multiple Arthrocenteses by ortho Dr. Maria at [facility] for this issue
-Sent in by Dr. Hernandez Plastic surgery in consultation with Orthopedics; s/p R knee drainage in ER
-MRI showed severe soft tissue swelling and subcutaneous edema in the anterior right knee, 5.7 cm EXTRA-ARTICULAR FLUID COLLECTION overlying the anteromedial tibial plateau, large right knee effusion
-S/P Right knee superficial soft tissue I+D, drain replacement 03/22 by Mary; OR cultures growing group G strep
-Currently on IV cefazolin 2g Q8 hours, WBC uptrending though inflammatory markers downtrending
Plan
-Continue IV cefazolin 2g Q8 based off surgical wound culture susceptibilities
-Consideration of surgical options both here and from outside institutions
-C/w multimodal pain control, wean opioids
-Trend CBC and inflammatory markers
#Anemia
-Likely due to blood loss from OR, acute disease state
-No evidence of nutritional deficiency at this time
-Hemoglobin trend stable
#HAILY
-Suspect pre-renal as renal function normalized with IVF
-HCTZ and lisinopril were held on admission
-Resolved
#Essential HTN
-No known history of systemic complications, no regimen of HCTZ and BISHOP inhibitor
-Home regimen was held for HAILY, blood pressure has been well-controlled without these meds
-C/W PRN hydralazine, plan for re-introduction of ACEi as out-patient if needed
#HLD
-No known history of ASCVD but does has risk with smoking history
-Continued on home regimen of Crestor 10 mg daily
#Anxiety
#Insomnia
-continue Xanax 0.5 mg at bedtime, Effexor 150 mg daily
-Provided extra dose of Xanax today as she was very anxious on my eval
#Ex-smoker
-31-year hx, quit 2017
#Daily marijuana vaping
-cessation advised
#Hx schwannoma T8 with removal and laminectomy
#Oral cancer removal 04/23/2018
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
DVT prophylaxis: SCDs
Diet: House
Code: Full
Anticipated Discharge: > 48 hours
Subjective/Interval History
-
Date of Service: March 28, 2024
No acute events overnight. Patient continues to feel well and has no acute complaints. [facility] denied transfer yesterday. Orthopedics currently planning to have physician that has previously been involved in patient's care to
assess her later.
At this point our options are as follows:
1) Dr. Jacob to evaluate today, possible orthopedic intervention here
2) I will call orthopedics to see if office visit is available for the patient early next week in event of discharge on IV biotics with outpatient follow-up
3) hospital administration involvement in order to facilitate transfer
I will wait for Dr. Crespo patient, pursue latter options if needed
Objective Data
-
Labs:
Laboratory Results
03/28/24
08:54
WBC 14.9 H
Hgb 9.8 L
Hct 29.1 L
Plt Count 429 H
Sodium 137
Potassium 3.8
Chloride 103
Carbon Dioxide 27
BUN 16
Creatinine 0.6
Glucose 78
Calcium 8.9
Vital Signs:
Vital Signs
Temp Pulse Resp BP Pulse Ox
98.6 F 83 18 135/80 100
03/28/24 07:25 03/28/24 07:25 03/28/24 07:25 03/28/24 07:25 03/28/24 07:25
I&O
03/27/24 03/28/24 03/29/24
06:59 06:59 06:59
Intake Total 1800 / 1800 1160 / 1160
Output Total
Balance 1795 / 1795 1150 / 1150
Review of Systems
-
History Source: Patient
All other systems: Reviewed and negative
Physical Exam
-
General: No Apparent Distress, Comfortable and Conversant
HEENT: Normocephalic, Atraumatic, Moist Mucous Membranes and Anicteric
Respiratory: Clear to Auscultation and Non Labored Respirations
Cardiac: Regular Rhythm and S1/S2; Negative Murmur, Rub or Gallop
GI: Soft, Nontender, Nondistended and Normal Bowel Sounds
Musculoskeletal: No Clubbing, No Cyanosis, No Edema and Other (Swelling and erythema of right knee improving; blood-tinged drainage from the surgical drain)
Skin: Warm and Dry; Negative Rash
Neuro: AO x 3, Nonfocal/Grossly Intact and Central Nerve's Intact; Negative Tremors
Psych: Calm
[2024-03-28] MEDS: ROXICODONE 10 MG PO ×2 (13:47→21:13)
[2024-03-28 15:34] VITALS: BP 129/75
--- NOTE | 2024-03-28 15:58 | CM ---
Reviewed the chart notes and spoke with the patient at the bedside. Per notes, await evaluation by Dr. Jacob from orthopedics. PICC line information, IV abx rx, and chest x-ray faxed to [facility]. CM continues to be available to patient/family
and is monitoring medical plan for needs at discharge.
Plan: Discharge most probably to home with [facility] and [facility] since [facility] declined as inpatient transfer.
--- NOTE | 2024-03-28 16:31 | W.PN.UPDATE ---
Update Note
Progress Note Update
74-year-old female 10 months after right knee replacement with Dr. Maria 05/2023. The patient is about 3 weeks after right prepatellar soft tissue I&D with Dr. Hernandez. About 2 weeks ago she was noted to have some erythema concerning for
infection. She was taken to the operating room last [facility] for local I&D. She had a preoperative MRI which showed a joint effusion. Patient presently denies pain deep in the knee joint. She reports having pain at the drain site.
On exam the patient is lying comfortably in bed. She is awake and alert. She is able to straight leg raise. Range of motion was not tested due to restrictions on flexion due to the anterior soft tissue. There is possibly a trace effusion but no
mana swelling or tenseness about the knee joint. There is no surrounding erythema about the knee joint other than what appears to be well-healing anterior based incision about the patellar tendon.
I reviewed the labs and clinical data
We discussed treatment options with the patient. Due to her relatively benign appearing knee joint, we discussed the option of observation. Given the local infection, we discussed joint aspiration to rule out deep prosthetic joint infection.
Shared decision was to proceed with aspiration. We discussed that if the results show low concern for infection, then she may follow-up with Dr. Maria for further care for the knee joint. If the aspirate shows concern for infection, then we
discussed transfer to index surgeon Dr. Maria for further treatment. All questions were answered.
Segundo Reed MD
[2024-03-28 23:44] VITALS: BP 127/78
[2024-03-29 05:14] LABS: % Basophils 0.2 % (0-2); % Eosinophils 1.2 % (0-6); % Immature Granulocytes 1.3 % (0-0.5); % Lymphocytes 15.2 % (20.5-51.1); % Monocytes 7.8 % (1.7-9.3); % Neutrophils 74.3 % (42.2-75.2); Absolute Eosinophils 0.2 10^3/uL (0-0.7); Absolute Immature Granulocytes 0.2 10^3/uL (0-0.05); Absolute Lymphocytes 2.1 10^3/uL (1.2-3.4); Absolute Monocytes 1.1 10^3/uL (0.1-0.6); Absolute Neutrophils 10.1 10^3/uL (1.4-6.5); Hematocrit 26.6 % (37.0-47.0); Hemoglobin 8.6 g/dL (12.0-16.0); Mean Corp Hgb Conc. 32.3 g/dL (33.0-37.0); Mean Corpuscular Hgb 26.7 pg (27.0-31.0); Mean Corpuscular Volume 82.6 fL (81.0-99.0); Nucleated Red Blood Cells % 0 %; Platelet Count 391 10^3/uL (130-400); Red Blood Cell Count 3.22 10^6/uL (4.20-5.40); Red Cell Dist. Width 14.4 % (11.5-14.5); White Blood Cell Count 13.7 10^3/uL (4.8-10.8)
[2024-03-29 05:47] LABS: Blood Urea Nitrogen 18 mg/dl (7-17); Calcium 8.8 mg/dl (8.4-10.2); Carbon Dioxide 30 mmol/L (22-30); Chloride 103 mmol/L (98-107); Estimated Creatinine Clearance 70 ml/min; Glucose 89 mg/dl (70-99); Sodium 138 mmol/L (135-145); eGFR > 60.00
[2024-03-29 06:00] VITALS: BMI 27.0
[2024-03-29 07:10] LABS: Erythrocyte Sed Rate 93 mm/hour (0-20)
[2024-03-29 07:35] VITALS: BP 135/80
[2024-03-29] MEDS: EFFEXOR XR 150 MG PO (08:59)
[2024-03-29] MEDS: CRESTOR 10 MG PO (09:00)
[2024-03-29] MEDS: XANAX 0.5 MG PO ×2 (09:00→20:06)
[2024-03-29] MEDS: ANCEF 10 IV ×3 (09:00→23:34)
[2024-03-29] MEDS: HYDROPHOR 1 APPLIC TOPICAL (09:01)
[2024-03-29 09:39] LABS: Body Fluid WBC 37605 /CUMM
[2024-03-29 09:41] LABS: Body Fluid Second Tech EM
--- NOTE | 2024-03-29 09:43 | W.PN.UPDATE ---
Update Note
Progress Note Update
PROCEDURE: Right knee joint ultrasound Guided aspiration
MEDICATIONS INJECTED:
None
PROCEDURE DETAIL:
After verbal consent was obtained and laterality was confirmed, the patient was offered a automatic teller machine servicer and declined. The right knee underwent a limited non-vascular ultrasound examination; there is noted to be an effusion with some areas of hyperechoic
tissue of the effusion consistent with likely coagulated blood. The target site was then identified on ultrasound utilizing a superior lateral approach away from any skin lesion. The skin was then sterilized with alcohol and the needle introduced
with visualization of the needle on screen into the effusion. The needle was visible on the screen and as much fluid was aspirated as possible. Once no more aspirate could be obtained the needle was removed, There was minimal bleeding. Initially
there was slight bloody aspirate however with massage of the knee and needle adjustment visualized on screen approximately 30 cc of cloudy yellow fluid was aspirated. There were no immediate side effects or adverse events and the patient was at
baseline immediately following the procedure.
Pending recommendations upon results of aspiration. Orders placed and was handcarried to the lab. Based on appearance there is concern for periprosthetic joint infection
--- NOTE | 2024-03-29 13:06 | W.PN.UPDATE ---
Update Note
Progress Note Update
Right knee joint aspirate values show total WBC of 37,605 and PMN percentage of 81. Negative crystals. Gram stain pending. Right knee joint aspirate values show total WBC of 37,605 and PMN percentage of 81. Negative crystals. Gram stain pending.
Cultures pending may be affected by antibiotic regimen
Appearance of fluid was cloudy concerning for periprosthetic joint infection. Lab values as well concerning for infection that is intra-articular. As noted by Dr. Reed previously with concern for primary infection as periprosthetic recommend
transfer to index surgeon Dr. Maria for further orthopedic treatment
--- NOTE | 2024-03-29 13:40 | CM ---
CM following re: discharge planning.
Reviewed pt's chart. per MD, transfer to [facility] recommended to index surgeon Dr. Maria for further orthopedic treatment. If transfer to [facility] failed then pt most likely will need home infusion therapy with [facility] and [facility].
D/C plan: possible transfer to [facility].
CM will follow with discharge plan updates as hospitalization progresses
--- NOTE | 2024-03-29 13:49 | W.DCSUMMARY ---
Discharge Summary
Discharge Data
Date of Admission: 03/21/24
Date of Discharge: 03/30/24
-
Pending Results: Yes
Additional Pending Results:
Right knee aspirate culture
Hospital Course
74-year-old female with hypertension, hyperlipidemia, H/O sarcoma of RLE, H/O oral cancer, s/p bilateral TKR at [facility] with Dr. Maria presents to the hospital with fevers, right knee swelling and pain. Signs of infection noted
and plastic surgery office, was sent into the ED where joint aspiration was performed. MRI showed evidence of soft tissue swelling, subcutaneous edema of the right anterior knee as well as extra-articular fluid collection overlying the anterior
medial tibial plateau, large right knee joint effusion. Cultures ultimately came back positive for Group G Strep, patient was treated with IV cefazolin, improvement of WBC count and inflammatory markers. Concern for underlying prosthetic joint
infection was raised, repeat aspirate showed PMN count >81%, cloudy consistency. Orthopedics team recommended transfer to [facility] for continuity of care with the team that performed the prosthetic joint placement. Currently with right knee
JOSHUA tube, drainage has reduced, no longer blood.
Discharge Plan
-
Patient Disposition: Acute Care Hospital
Condition: Serious
Discharge Orders:
Discharge Patient (As Directed); Ordered 03/30/24
Ordered By: Anson Collins
Discharge Date and Time
Print Language: GERMAN
--- NOTE | 2024-03-29 13:49 | W.PN.HOSP.TC ---
Today's Communication/Plan
-
Follow-up joint aspiration cultures
Follow-up orthopedic recommendations concerning for an aspiration
Assessment / Plan
Assessment / Plan
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
-prior R knee seroma washout with drain 02/27, prior R TKR 05/27 and subsequent seroma removal 09/2023
-Has also had multiple Arthrocenteses by ortho Dr. Maria at [facility] for this issue
-Sent in by Dr. Hernandez Plastic surgery in consultation with Orthopedics; s/p R knee drainage in ER
-MRI showed severe soft tissue swelling and subcutaneous edema in the anterior right knee, 5.7 cm EXTRA-ARTICULAR FLUID COLLECTION overlying the anteromedial tibial plateau, large right knee effusion
-S/P Right knee superficial soft tissue I+D, drain replacement 03/22 by Mary; OR cultures growing group G strep
-Currently on IV cefazolin 2g Q8 hours, WBC uptrending though inflammatory markers downtrending
-Unfortunately, joint aspiration with PMN >80%, highly suspicious for prosthetic joint infection
Plan
-Continue IV cefazolin 2g Q8 based off surgical wound culture susceptibilities
-Follow-up surgical recommendations for PJI
-C/w multimodal pain control, wean opioids
-Trend CBC and inflammatory markers
#Anemia
-Likely due to blood loss from OR, acute disease state
-No evidence of nutritional deficiency at this time
-Hemoglobin trend stable
#HAILY
-Suspect pre-renal as renal function normalized with IVF
-HCTZ and lisinopril were held on admission
-Resolved
#Essential HTN
-No known history of systemic complications, no regimen of HCTZ and BISHOP inhibitor
-Home regimen was held for HAILY, blood pressure has been well-controlled without these meds
-C/W PRN hydralazine, plan for re-introduction of ACEi as out-patient if needed
#HLD
-No known history of ASCVD but does has risk with smoking history
-Continued on home regimen of Crestor 10 mg daily
#Anxiety
#Insomnia
-continue Xanax 0.5 mg at bedtime, Effexor 150 mg daily
-Provided extra dose of Xanax today as she was very anxious on my eval
#Ex-smoker
-31-year hx, quit 2017
#Daily marijuana vaping
-cessation advised
#Hx schwannoma T8 with removal and laminectomy
#Oral cancer removal 04/23/2018
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
DVT prophylaxis: SCDs
Diet: House
Code: Full
Anticipated Discharge: 24 - 48 hours
Subjective/Interval History
-
Date of Service: March 29, 2024
No acute events. This morning she had right knee joint aspiration to assess for PJI, performed by orthopedics. She states that she continues to feel well, states her knee appears to be improving externally. Denies fevers or chills, denies chest
pain, denies shortness of breath, denies nausea/vomiting/diarrhea.
Objective Data
-
Labs:
Laboratory Results
03/29/24
04:53
WBC 13.7 H
Hgb 8.6 L
Hct 26.6 L
Plt Count 391
Sodium 138
Potassium 4.0
Chloride 103
Carbon Dioxide 30
BUN 18 H
Creatinine 0.6
Glucose 89
Calcium 8.8
Vital Signs:
Vital Signs
Temp Pulse Resp BP Pulse Ox
98.9 F 86 16 135/80 100
03/29/24 07:35 03/29/24 07:35 03/29/24 07:35 03/29/24 07:35 03/29/24 10:24
I&O
03/28/24 03/29/24 03/30/24
06:59 06:59 06:59
Intake Total 1160 / 1160 1720 / 1720
Output Total
Balance 1150 / 1150 1705 / 1705
Review of Systems
-
History Source: Patient
All other systems: Reviewed and negative
Physical Exam
-
General: Well Nourished, No Apparent Distress, Comfortable and Conversant
HEENT: Normocephalic, Atraumatic, Moist Mucous Membranes and Anicteric
Respiratory: Clear to Auscultation and Non Labored Respirations; Negative Wheezes or Rales
Cardiac: Regular Rhythm and S1/S2; Negative Murmur, Rub or Gallop
GI: Soft, Nontender, Nondistended and Normal Bowel Sounds
Musculoskeletal: No Clubbing, No Cyanosis, No Edema and Other (Right knee surgical scar well-approximated, improving external erythema, no purulence)
Skin: Warm, Dry and Normal Turgor; Negative Rash
Neuro: AO x 3, Nonfocal/Grossly Intact and Central Nerve's Intact
Data Reviewed
-
Labs: Labs Reviewed by me and Discussed with Patient
--- NOTE | 2024-03-29 15:49 | W.PN.ID1 ---
Date of Service
Date of Service: March 29, 2024
Today's Communication
continue cefazolin
Assessment / Plan
Suspected right knee PJI due to Gp G strep
Right knee fluid collection s/p drainage
HTN
HLD
anxiety
insomnia
Recommendations:
todays arthrocentesis consistent with PJI - body fluid gram stain negative but has been on antibiotics
Fluid cultures (non-joint) with Gp G strep.
continue cefazolin 2 gm IV q8h - likely 6+ week course
Awaiting transfer to [facility]; patient believes there is no bed, I have also placed an electronic referral to outpatient [facility] orthopedics at her request. If we plan to have her follow up as an outpatient then we would need to set up for the outpatient
home IV antibiotics, I have given a script to registered nurse hh case manager to begin evaluating for this possibility and left a message with hospitalist to see if there are any updates
Chief Complaint
-: Other (suspected PJI)
Subjective / Review of Systems
afebrile
bp stable
received confirmation that [facility] received my outpatient referral request - patient reports she hasnt had a phone call thus far
stable leukocytosis
cr stable
todays arthrocentesis consistent with PJI - body fluid gram stain negative but has been on antibiotics
Vital Signs / Physical Exam
Vital Signs
Vital Signs
Temp Pulse Resp BP Pulse Ox
98.9 F 86 16 135/80 100
03/29/24 07:35 03/29/24 07:35 03/29/24 07:35 03/29/24 07:35 03/29/24 10:24
Physical Exam
Constitutional: No Acute Distress and Chronically Ill
Cardiovascular: Regular Rate and S1/S2; Negative Murmur or Rub
Pulmonary: Clear and Symmetric; Negative Wheezes or Rales
Gastrointestinal: Soft, Non Tender, Non Distended and Normal Bowel Sounds
Skin: Warm and Dry; Negative Rash or Jaundice
Objective Data
Lab Data
Lab Results
03/29/24 04:53
03/29/24 04:53
ESR 93 mm/hour (0-20) H 03/29/24 04:53
Estimated Creat Clear 70 ml/min 03/29/24 04:53
Total Bilirubin 0.3 mg/dl (0.2-1.3) 03/24/24 06:27
AST 23 U/L (14-36) 03/24/24 06:27
ALT 17 U/L (0-35) 03/24/24 06:27
Alkaline Phosphatase 139 U/L (38-126) H 03/24/24 06:27
C-Reactive Protein 77.10 mg/L (0.0-10.00) H 03/29/24 04:53
Most recent labs reviewed.
Micro Results:
03/29/24 08:20 Body Fluid Culture - Pending
Joint Fluid Gram Stain - Preliminary
03/29/24 08:20 Anaerobic Culture - Pending
Joint
03/21/24 20:36 Body Fluid Culture - Final
Knee - Right Group G Streptococcus
Gram Stain - Final
03/22/24 17:00 Anaerobic Culture - Final
Knee - Right NO ANAEROBES ISOLATED
03/22/24 17:00 Wound Culture - Final
Knee - Right Group G Streptococcus
Gram Stain - Final
03/21/24 23:43 MRSA Screen - Final
Nose No Methicillin Resistant Staphylococcus aureus isolated.
[2024-03-29 16:15] VITALS: BP 137/81
--- NOTE | 2024-03-29 17:45 | W.PN.PLAS ---
Progress Note
Objective Data
Vital Signs
Temp Pulse Resp BP Pulse Ox
99.9 F 93 16 135/80 95
03/29/24 15:40 03/29/24 15:40 03/29/24 15:40 03/29/24 07:35 03/29/24 15:40
Intake and Output
03/28/24 03/29/24 03/30/24
06:59 06:59 06:59
Intake Total 1160 / 1160 1720 / 1720
Output Total
Balance 1150 / 1150 1705 / 1705
Intake:
Oral fluids 1160 / 1160 1720 / 1720
Output:
Drain Output (Total)
Right Cruz-Ortega
Other:
Number of approximated SMALL 1
amounts of urine
Number of approximated MODERATE 2 3
amounts of urine
How many times incontinent 2
MODERATE amount urine
Lab Results
03/29/24 04:53
03/29/24 04:53
Microbiology Results
03/29/24 08:20 Joint Fluid Gram Stain - Preliminary
Assessment / Plan
Wound stable. Patient continues to improve. Doing well. Patient anxious to go.
Patient is stable. Will discharge to home once patient is able to ambulate, void, tolerate a PO diet and pain is adequately controlled.
Visiting Nurse care ordered / not ordered.
Wound care discussed with patient.
Follow up within days.
Follow up with family physician for any medical issues.
Patient given any appropriate scripts at office pre op visit.
[2024-03-29 23:15] VITALS: BP 145/82
[2024-03-29] MEDS: ROXICODONE 10 MG PO (23:34)
[2024-03-29] MEDS: FLUSH (NSS) 2 FLUSH IV (23:36)
--- NOTE | 2024-03-30 03:30 | PTCARENOTE ---
Patient is aware she is NPO since MN. She said her pain is OK at this time and she doesn't need any pain medication.
[2024-03-30 04:44] LABS: % Basophils 0.3 % (0-2); % Eosinophils 1.4 % (0-6); % Immature Granulocytes 0.9 % (0-0.5); % Lymphocytes 18.7 % (20.5-51.1); % Monocytes 8.3 % (1.7-9.3); % Neutrophils 70.4 % (42.2-75.2); Absolute Eosinophils 0.2 10^3/uL (0-0.7); Absolute Immature Granulocytes 0.1 10^3/uL (0-0.05); Absolute Lymphocytes 2.2 10^3/uL (1.2-3.4); Absolute Neutrophils 8.2 10^3/uL (1.4-6.5); Hematocrit 27.3 % (37.0-47.0); Hemoglobin 8.9 g/dL (12.0-16.0); Mean Corp Hgb Conc. 32.6 g/dL (33.0-37.0); Mean Corpuscular Hgb 26.8 pg (27.0-31.0); Mean Corpuscular Volume 82.2 fL (81.0-99.0); Mean Platelet Volume 8.6 fL (7.4-10.4); Nucleated Red Blood Cells % 0 %; Platelet Count 393 10^3/uL (130-400); Red Blood Cell Count 3.32 10^6/uL (4.20-5.40); Red Cell Dist. Width 14.3 % (11.5-14.5); White Blood Cell Count 11.7 10^3/uL (4.8-10.8)
[2024-03-30 05:15] LABS: Blood Urea Nitrogen 18 mg/dl (7-17); Calcium 9.1 mg/dl (8.4-10.2); Carbon Dioxide 31 mmol/L (22-30); Chloride 103 mmol/L (98-107); Estimated Creatinine Clearance 70 ml/min; Glucose 92 mg/dl (70-99); Potassium 4.4 mmol/L (3.5-5.1); Sodium 138 mmol/L (135-145); eGFR > 60.00
[2024-03-30 05:27] VITALS: BMI 26.8
[2024-03-30 05:52] LABS: Erythrocyte Sed Rate 96 mm/hour (0-20)
[2024-03-30 07:00] VITALS: BP 158/89
[2024-03-30] MEDS: FLUSH (NSS) 2 FLUSH IV (08:52)
[2024-03-30] MEDS: ANCEF 10 IV (08:52)
[2024-03-30] MEDS: XANAX 0.5 MG PO (09:39)
[2024-03-30] MEDS: EFFEXOR XR 150 MG PO (09:39)
[2024-03-30] MEDS: CRESTOR 10 MG PO (09:40)
[2024-03-30] MEDS: HYDROPHOR 1 APPLIC TOPICAL (09:44)
--- NOTE | 2024-03-30 10:46 | W.PN.HOSP.TC ---
Addendum entered and electronically signed by Anson Collins DO 04/09/24 14:15:
#Prosthetic Joint infection/Cellulitics/ Abscess Only, Without Systemic Illness
-No systemic signs of sepsis, does not meet SIRS criteria
-Remained hemodynamically stable
Original Note:
Today's Communication/Plan
-
Continue IV cefazolin
Transfer to [facility] for orthopedics, PJI washout
Assessment / Plan
Assessment / Plan
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
-prior R knee seroma washout with drain 02/27, prior R TKR 05/27 and subsequent seroma removal 09/2023
-Has also had multiple Arthrocenteses by ortho Dr. Maria at [facility] for this issue
-Sent in by Dr. Hernandez Plastic surgery in consultation with Orthopedics; s/p R knee drainage in ER
-S/P Right knee superficial soft tissue I+D, drain replacement 03/22 by Mary; OR cultures growing group G strep
-Currently on IV cefazolin 2g Q8 hours, WBC uptrending though inflammatory markers downtrending
-Unfortunately, joint aspiration with PMN >80%, highly suspicious for prosthetic joint infection
Plan
-Continue IV cefazolin 2g Q8 based off surgical wound culture susceptibilities
-Transfer to [facility] for orthopedics, PJI washout
-C/w multimodal pain control, wean opioids
-Trend CBC and inflammatory markers
-Monitor drain output
#Anemia
-Likely due to blood loss from OR, acute disease state
-No evidence of nutritional deficiency at this time
-Hemoglobin trend stable
#HAILY
-Suspect pre-renal as renal function normalized with IVF
-HCTZ and lisinopril were held on admission
-Resolved
#Essential HTN
-No known history of systemic complications, no regimen of HCTZ and BISHOP inhibitor
-Home regimen was held for HAILY, blood pressure has been well-controlled without these meds
-C/W PRN hydralazine, plan for re-introduction of ACEi as out-patient if needed
#HLD
-No known history of ASCVD but does has risk with smoking history
-Continued on home regimen of Crestor 10 mg daily
#Anxiety
#Insomnia
-continue Xanax 0.5 mg at bedtime, Effexor 150 mg daily
-Provided extra dose of Xanax today as she was very anxious on my eval
#Ex-smoker
-31-year hx, quit 2017
#Daily marijuana vaping
-cessation advised
#Hx schwannoma T8 with removal and laminectomy
#Oral cancer removal 04/23/2018
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
DVT prophylaxis: SCDs
Diet: House
Code: Full
Disposition: Transfer to [facility]
Anticipated Discharge: Today
Subjective/Interval History
-
Date of Service: March 30, 2024
No acute events overnight. Examined at the bedside. She is anxious in regards to going to [facility] today. Questions when procedure will take place, I notified her that from my understanding the team at [facility] would like to have
washout performed over the weekend
She denies any fevers or chills, chest pain, shortness of breath. No significant pain to the right knee
Objective Data
-
Labs:
Laboratory Results
03/30/24
04:37
WBC 11.7 H
Hgb 8.9 L
Hct 27.3 L
Plt Count 393
Sodium 138
Potassium 4.4
Chloride 103
Carbon Dioxide 31 H
BUN 18 H
Creatinine 0.6
Glucose 92
Calcium 9.1
Vital Signs:
Vital Signs
Temp Pulse Resp BP Pulse Ox
98.8 F 79 16 158/89 96
03/30/24 07:00 03/30/24 07:00 03/30/24 07:00 03/30/24 07:00 03/30/24 07:00
I&O
03/29/24 03/30/24 03/31/24
06:59 06:59 06:59
Intake Total 1720 / 1720 1320 / 1320
Output Total
Balance 1705 / 1705 1290 / 1290
Review of Systems
-
History Source: Patient
All other systems: Reviewed and negative
Physical Exam
-
General: Well Nourished, No Apparent Distress, Comfortable and Conversant
HEENT: Normocephalic, Atraumatic, Moist Mucous Membranes and Anicteric
Respiratory: Clear to Auscultation, Wheezes, Rales, Rhonchi and Non Labored Respirations
Cardiac: Regular Rhythm and S1/S2; Negative Murmur, Rub, JVD or Gallop
GI: Soft, Nontender, Nondistended and Normal Bowel Sounds
Musculoskeletal: No Clubbing, No Cyanosis, No Edema and Other (Slight erythema to right knee at site of surgical scar, no purulence, yellowish drain output)
Skin: Warm and Dry; Negative Rash or Jaundice
Psych: Anxious
Data Reviewed
-
Labs: Labs Reviewed by me and Discussed with Patient
--- NOTE | 2024-03-30 12:22 | W.PN.UPDATE ---
Update Note
Progress Note Update
Patient pleasant, yet frustrated by the whole situation, understandably so. Right knee joint aspirate with 37,600 cells 81% PMNs- very concerning for PJI. We continue to follow culture data. Aspirate from anterior knee previously has grown Group G
strep. Continues on IV Ancef. Plan is for a transfer back to Dr. Maria at [facility] for more definitive care. Appreciate the efforts of all involved in this patient's care- primary, ID, plastics. Patient to remain NPO for (possible)
surgery today at [facility]
[2024-03-30 14:37] VITALS: BP 143/85
--- NOTE | 2024-03-30 15:47 | CM ---
Patient with Dx Suspected PJI of R knee, with seroma/cellulitis. NPO for possible OR today. Plan transfer to [facility].
Message from Dr Collins; [facility] for transfer to their ortho service for prosthetic join washout.
Spoke with Nursing Hris Administrator, [facility]; she will let their Adms Dept know patient was accepted for transfer by their Dr Nagi Wills.
Spoke with [facility] (ph [phone], fax [phone]) she spoke with their supervisor fitting and they have assigned the patient to [facility] room 3025, the phone for report [phone].
Met with patient who agrees to transfer to [facility] today by ambulance.
Ambulance forms completed. Notified by executive community planning [facility] patient will be transported at 2:30pm today.
Plan transfer [facility] today by ambulance.
[2024-04-02 02:56] LABS: Lyme Disease DNA by PCR Not Detected; Lyme Source Synovial fluid
--- NOTE | 2024-04-02 13:20 | PN.CDI ---
CDI
- -
CDI:
Physician Documentation Request
Admit Date: 03/21/24 20:56
Dear Doctor Dennis,
Please review the following and provide your response in the progress notes.
Clinical Indicators:
Pt admitted with Prosthetic Joint infection right knee with superficial abscess/Cellulitis /seroma
Documented per H&P, ' WBC 12.4 with left shift, 99.4 F, HR 93...IV vancomycin, IV Zosyn given in ER will continue IV vancomycin renal dosed per pharmacy and cefepime 2 g now and 1 g every 24H ....'
ID progress note 03/29, ' todays arthrocentesis consistent with PJI - body fluid gram stain negative but has been on antibiotics Fluid cultures (non-joint) with Gp G strep.continue cefazolin 2 gm IV q8h - likely 6+ week course...'
On admission WBC 12.4 with left shift, HR 109
03/24/24
23:43
Temp 100.4 F H
03/23/24 03/24/24 03/26/24
06:16 06:27 05:42
WBC 10.9 H 12.9 H 15.4 H
03/27/24
07:51
WBC 16.7 H
Please clarify which of the following most accurately describes the status of the patient's infection:
Sepsis-POA 2/2 to Prosthetic joint infection right knee/Abscess/Right knee cellulitis
- Systemic manifestations of infection, with 2 or more SIRS criteria which include:
- Fever >100.4 degrees F or hypothermia < 96.8 degrees F
- Leukocytosis - WBC > 12,000 or leukopenia - WBC < 4,000 or > 10% bands
- Tachycardia > 90 beats per minute
- Tachypnea - RR > 20 breaths per minute or PaCO2 , 32mmHg
Source: [employer] Manual 2013
Sepsis -POA 2/2 Prosthetic joint infection of right knee only
Prosthetic Joint infection/Cellulitics/ Abscess Only, Without Systemic Illness
Other
Use of terms such as suspected, likely, concern for, or probable (associated with a specific diagnosis that is being evaluated, monitored, or treated as if it exists) are acceptable and can be coded in the inpatient setting, when documented at the
time of discharge.
Thank you,
Madai Cherry RN
CDI Specialist
[place] [facility]
Please use your independent medical judgment in providing your response.
== END 2024-03-30 15:04 | disposition short-term general hospital (02) | DRG 486 ==
LOC: 2 NORTH 20:56
PROVIDERS: Clinical Nurse Specialist Family Health; Internal Medicine; Physician Assistant; Physician Assistant Surgical; Radiology Neuroradiology; ADMITTING PHYSICIAN Student in an Organized Health Care Education/Training Program; ATTENDING PHYSICIAN Internal Medicine; CONSULT PHYSICIAN Surgery Plastic and Reconstructive Surgery; EMERGENCY PHYSICIAN Emergency Medicine; FAMILY PHYSICIAN Nurse Practitioner Family; OTHER PHYSICIAN Student in an Organized Health Care Education/Training Program
PROC: 0S9C3ZX Drainage of Right Knee Joint, Percutaneous Approach, Diagnostic (ICD-10-PCS; 2024-03-22)
PROC: 0S9C00Z Drainage of Right Knee Joint with Drainage Device, Open Approach (ICD-10-PCS; 2024-03-22)
PROC: 02HV33Z Insertion of Infusion Device into Superior Vena Cava, Percutaneous Approach (ICD-10-PCS; 2024-03-28)
DX: T84.53XA Infection and inflammatory reaction due to internal right knee prosthesis, initial encounter (principal); L03.115 Cellulitis of right lower limb; N17.9 Acute kidney failure, unspecified; N18.4 Chronic kidney disease, stage 4 (severe); M00.261 Other streptococcal arthritis, right knee; M96.842 Postprocedural seroma of a musculoskeletal structure following a musculoskeletal system procedure; B95.4 Other streptococcus as the cause of diseases classified elsewhere; Y79.2 Prosthetic and other implants, materials and accessory orthopedic devices associated with adverse incidents; Y83.8 Other surgical procedures as the cause of abnormal reaction of the patient, or of later complication, without mention of misadventure at the time of the procedure; E86.0 Dehydration; I12.9 Hypertensive chronic kidney disease with stage 1 through stage 4 chronic kidney disease, or unspecified chronic kidney disease; R60.0 Localized edema; E78.00 Pure hypercholesterolemia, unspecified; D64.9 Anemia, unspecified; E87.6 Hypokalemia; F41.9 Anxiety disorder, unspecified; G47.00 Insomnia, unspecified; M25.461 Effusion, right knee; D36.10 Benign neoplasm of peripheral nerves and autonomic nervous system, unspecified; F12.90 Cannabis use, unspecified, uncomplicated; M19.90 Unspecified osteoarthritis, unspecified site; Z96.653 Presence of artificial knee joint, bilateral; Z83.3 Family history of diabetes mellitus; Z82.49 Family history of ischemic heart disease and other diseases of the circulatory system; Z91.040 Latex allergy status; Z87.891 Personal history of nicotine dependence; Z85.819 Personal history of malignant neoplasm of unspecified site of lip, oral cavity, and pharynx; Z85.831 Personal history of malignant neoplasm of soft tissue; Y92.9 Unspecified place or not applicable
CPT/HCPCS: 71045; 73721; 80048; 80053; 80202; 83735; 85025; 85027; 85652; 86140; 87015; 87070; 87075; 87077; 87147; 87205; 87476; 89051; 89060; 96365; 96366; 96367; 99285